=== PATIENT | male | born 1925 | race Caucasian/White ===

== ENCOUNTER 2016-03-22 14:39 | Inpatient (IN) | payer MEDICARE, OTHER ==
[2016-03-22] MEDS ORDERED: SODIUM CHLORIDE 0.9% 500 ML IV STA (15:41)
[2016-03-22] MEDS ORDERED: IBUPROFEN 600 MG TAB PO STA (15:41)
[2016-03-22] MEDS ORDERED: SODIUM CHLORIDE 0.9% 1,000 ML IV STA ×2 (15:41)
[2016-03-22] MEDS ORDERED: ACETAMINOPHEN TAB 500 MG TAB PO STA (15:41)
--- NOTE | 2016-03-22 15:48 | ED ---
General Adult HPI - General Chief complaint: Upper Respiratory Infection Stated complaint: Cough/Fever/Sweats Time Seen by Provider: 03/22/16 15:32 Source: patient, RN notes reviewed, old records reviewed Mode of arrival: ambulatory Limitations: no limitations - History of Present Illness Initial comments: This is an 89-year-old male the ER for evaluation. This patient presents for evaluation cough and congestion mild shortness of breath and fever. Patient does have significant medical history of heart disease, CHF, denies COPD. Denies abdominal pain. Mild anterior sternal chest pain. No nausea vomiting or diarrhea. No travel history no sick contacts. No recent hospitalizations - Related Data Home Medications Medication Instructions Recorded Confirmed Atenolol [Tenormin] 12.5 mg PO DAILY@0800 05/29/14 03/22/16 Budesonide/Formoterol Fumarate 2 puff INHALATION RT-BID 05/29/14 03/22/16 [Symbicort 80-4.5 Mcg Inhaler] Calcitriol 0.5 mcg PO MOWEFR 05/29/14 03/22/16 Cyanocobalamin [Vitamin B-12 2,000 mcg SQ QMONTH 05/29/14 03/22/16 Injection] Furosemide [Lasix] 20 mg PO MOWEFR 05/29/14 03/22/16 Mesalamine [Delzicol] 800 mg PO BID@0800,2100 05/29/14 03/22/16 Pravastatin Sodium [Pravachol] 40 mg PO HS@2100 05/29/14 03/22/16 Sertraline [Zoloft] 50 mg PO DAILY@0800 05/29/14 03/22/16 Magnesium Oxide [Mag-Ox] 400 mg PO DAILY@0800 10/15/14 03/22/16 Aspirin 81 mg PO DAILY 12/05/14 03/22/16 Fluticasone Nasal [place] [Flonase 1 spray EA NOSTRIL DAILY 12/05/14 03/22/16 Nasal [place]] Loratadine [Claritin] 10 mg PO DAILY 12/05/14 03/22/16 Cholecalciferol [Vitamin D3] 1,000 unit PO DAILY 03/22/16 03/22/16 Docusate [Colace] 100 mg PO BID PRN 03/22/16 03/22/16 HYDROcodone/APAP 5-325MG [[place] 5] 1 tab PO Q4HR PRN 03/22/16 03/22/16 Omeprazole [PriLOSEC] 20 mg PO BID@0800,1700 03/22/16 03/22/16 Previous Rx's Medication Instructions Recorded ALPRAZolam [Xanax] 0.5 mg PO BID PRN #20 tab 10/23/14 Ipratropium-Albuterol Nebulize 3 ml INHALATION RT-QID #1 ampul.neb 10/23/14 [Duoneb 0.5 mg-3 mg/3 ml Soln] Allergies Allergy/AdvReac Type Severity Reaction Status Date / Time Penicillins Allergy Unknown Rash/Hives Verified 03/22/16 15:12 Sulfa (Sulfonamide Allergy Unknown Rash/Hives Verified 03/22/16 15:12 Antibiotics) Review of Systems ROS Statement: Those systems with pertinent positive or pertinent negative responses have been documented in the HPI. ROS Other: All systems not noted in ROS Statement are negative. Past Medical History Past Medical History: Blood Disorder, Cancer, Heart Failure, GI Bleed, Renal Disease Additional Past Medical History / Comment(s): crohns, diverticulosis, anemia, prostate cancer, skin cancers -melanoma removed from chest, heart failure- dystolic dysfunction with EF 50% in May 2013, pneumonia and bronchitis, chronic respiratory failure, numbness bilateral feet, arthiritis bilateral hips and knees, DJD, gait dysfunction, CKD, nephrolitiasis, urinary calculus, back pain. Last Myocardial Infarction Date:: 1989 History of Any Multi-Drug Resistant Organisms: None Reported Past Surgical History: Bowel Resection, Coronary Bypass/CABG, Heart Catheterization Additional Past Surgical History / Comment(s): ileocolectomy, several endoscopic procedures upper and lower, lumbar back surgery, multiple lithotripsies, hemmorhoidectomy, R lung partial lobectomy, bilateral rotator cuff repair, R foot achilles tendon repair, L heel spur and benign tumor removal , cystoscopy, TURP, bilateral cataract removal, L eye macular pucker surgery, skin cancer removals, BMA with diagnosing Chrons, laryngoscopy, SNIFF test x 2, peridontal surgery. Past Anesthesia/Blood Transfusion Reactions: No Reported Reaction Additional Past Anesthesia/Blood Transfusion Reaction / Comment(s): Pt has recieved 11 units of blood without reaction. Past Psychological History: Anxiety, Depression Additional Psychological History / Comment(s): Pt lives alone. He is normally independent. He uses a cane to ambulate. He drives. He has no home care agency. He has 2 nieces who assist him. Smoking Status: Former smoker Past Alcohol Use History: Occasional Additional Past Alcohol Use History / Comment(s): Pt smoked for about 6 months while in the service in [employer]. Pt will have an occasional beer or tavo. Past Drug Use History: None Reported - Past Family History Father Family Medical History: COPD Additional Family Medical History / Comment(s): Father at age 81yrs. Mother Family Medical History: Cancer, Renal Disease Additional Family Medical History / Comment(s): Mother had alot of stomach problems, breast cancer and kidney disease. General Exam Limitations: no limitations General appearance: alert, in no apparent distress, anxious Head exam: Present: atraumatic, normocephalic, normal inspection Eye exam: Present: normal appearance, PERRL, EOMI. Absent: scleral icterus, conjunctival injection, periorbital swelling ENT exam: Present: normal exam, mucous membranes moist Neck exam: Present: normal inspection. Absent: tenderness, meningismus, lymphadenopathy Respiratory exam: Present: normal lung sounds bilaterally. Absent: respiratory distress, wheezes, rales, rhonchi, stridor Cardiovascular Exam: Present: regular rate, normal rhythm, normal heart sounds. Absent: systolic murmur, diastolic murmur, rubs, gallop, clicks GI/Abdominal exam: Present: soft, normal bowel sounds. Absent: distended, tenderness, guarding, rebound, rigid Extremities exam: Present: normal inspection, full ROM, normal capillary refill. Absent: tenderness, pedal edema, joint swelling, calf tenderness Back exam: Present: normal inspection Neurological exam: Present: alert, oriented X3, CN II-XII intact Psychiatric exam: Present: normal affect, normal mood Skin exam: Present: warm, dry, intact, normal color. Absent: rash Course Vital Signs 03/22/16 03/22/16 03/22/16 14:42 15:13 15:30 Temperature 99.6 F 101.3 F H 101.3 F H Pulse Rate 72 70 Respiratory 18 22 Rate Blood Pressure 138/58 140/55 O2 Sat by Pulse 94 L 99 Oximetry 03/22/16 03/22/16 03/22/16 15:35 15:55 16:47 Temperature 101.3 F H 101 F H Pulse Rate 70 62 Respiratory 22 18 16 Rate Blood Pressure 158/74 148/70 O2 Sat by Pulse 98 95 Oximetry - Reevaluation(s) Reevaluation #1: 03/22/16 17:15 Patient does admit to feeling better now with fever control, chills and shaking is gone EKG Findings - EKG Comments: EKG Findings:: EKG shows normal sinus rhythm rate of 72, MO 172, QRS 80, QTc 433 Medical Decision Making - Medical Decision Making 89 male here for evaluation of weakness, fever and chills. Patient comes to ER with no complaints of shortness of breath no chest pain no bowel pain no nausea vomiting or diarrhea. Patient does admit to feeling generally weak, decreased appetite. Patient's found be mildly dehydrated with mild acute renal insufficiency, patient also is positive for influenza, feeling better with fever and symptom control. Patient will be admitted for cardiopulmonary monitoring and other development of infection. We will not start antibiotics at this time secondary to viral illness - Lab Data Result diagrams: 03/22/16 15:26 03/22/16 15:26 Lab Results 03/22/16 03/22/16 03/22/16 Range/Units 15:26 15:26 15:26 WBC 3.0 L (3.8-10.6) k/uL RBC 4.26 L (4.30-5.90) m/uL Hgb 13.5 (13.0-17.5) gm/dL Hct 41.1 (39.0-53.0) % MCV 96.6 (80.0-100.0) fL MCH 31.7 (25.0-35.0) pg MCHC 32.9 (31.0-37.0) g/dL RDW 12.7 (11.5-15.5) % Plt Count 103 L (150-450) k/uL Neutrophils % 67 % Lymphocytes % 15 % Monocytes % 11 % Eosinophils % 2 % Basophils % 1 % Neutrophils # 2.0 (1.3-7.7) k/uL Lymphocytes # 0.4 L (1.0-4.8) k/uL Monocytes # 0.3 (0-1.0) k/uL Eosinophils # 0.1 (0-0.7) k/uL Basophils # 0.0 (0-0.2) k/uL PT (9.0-12.0) sec INR (<1.1) APTT (22.0-30.0) sec Sodium 138 (137-145) mmol/L Potassium 4.3 (3.5-5.1) mmol/L Chloride 101 (98-107) mmol/L Carbon Dioxide 28 (22-30) mmol/L Anion Gap 9 mmol/L BUN 21 H (9-20) mg/dL Creatinine 1.49 H (0.66-1.25) mg/dL Est GFR (MDRD) Af Amer 54 (>60 ml/min/1.73 sqM) Est GFR (MDRD) Non-Af 45 (>60 ml/min/1.73 sqM) Glucose 84 (74-99) mg/dL Plasma Lactic Acid Humberto (0.7-2.0) mmol/L Calcium 9.0 (8.4-10.2) mg/dL Phosphorus 2.7 (2.5-4.5) mg/dL Magnesium 1.6 (1.6-2.3) mg/dL Total Bilirubin 0.9 (0.2-1.3) mg/dL AST 29 (17-59) U/L ALT 31 (21-72) U/L Alkaline Phosphatase 57 (38-126) U/L Total Creatine Kinase 93 (55-170) U/L CK-MB (CK-2) 1.5 (0.0-2.4) ng/mL CK-MB (CK-2) Rel Index 1.6 Troponin I 0.013 (0.000-0.034) ng/mL Total Protein 6.2 L (6.3-8.2) g/dL Albumin 3.7 (3.5-5.0) g/dL Influenza Type A RNA (Not Detectd) Influenza Type B (PCR) (Not Detectd) 03/22/16 03/22/16 03/22/16 Range/Units 15:26 15:26 15:26 WBC (3.8-10.6) k/uL RBC (4.30-5.90) m/uL Hgb (13.0-17.5) gm/dL Hct (39.0-53.0) % MCV (80.0-100.0) fL MCH (25.0-35.0) pg MCHC (31.0-37.0) g/dL RDW (11.5-15.5) % Plt Count (150-450) k/uL Neutrophils % % Lymphocytes % % Monocytes % % Eosinophils % % Basophils % % Neutrophils # (1.3-7.7) k/uL Lymphocytes # (1.0-4.8) k/uL Monocytes # (0-1.0) k/uL Eosinophils # (0-0.7) k/uL Basophils # (0-0.2) k/uL PT 10.3 (9.0-12.0) sec INR 1.0 (<1.1) APTT 24.1 (22.0-30.0) sec Sodium (137-145) mmol/L Potassium (3.5-5.1) mmol/L Chloride (98-107) mmol/L Carbon Dioxide (22-30) mmol/L Anion Gap mmol/L BUN (9-20) mg/dL Creatinine (0.66-1.25) mg/dL Est GFR (MDRD) Af Amer (>60 ml/min/1.73 sqM) Est GFR (MDRD) Non-Af (>60 ml/min/1.73 sqM) Glucose (74-99) mg/dL Plasma Lactic Acid Humberto 1.0 (0.7-2.0) mmol/L Calcium (8.4-10.2) mg/dL Phosphorus (2.5-4.5) mg/dL Magnesium (1.6-2.3) mg/dL Total Bilirubin (0.2-1.3) mg/dL AST (17-59) U/L ALT (21-72) U/L Alkaline Phosphatase (38-126) U/L Total Creatine Kinase (55-170) U/L CK-MB (CK-2) (0.0-2.4) ng/mL CK-MB (CK-2) Rel Index Troponin I (0.000-0.034) ng/mL Total Protein (6.3-8.2) g/dL Albumin (3.5-5.0) g/dL Influenza Type A RNA Detected A (Not Detectd) Influenza Type B (PCR) Not Detected (Not Detectd) - Radiology Data Radiology results: report reviewed (Chest x-ray two-view is negative for acute disease), image reviewed Disposition Clinical Impression: Influenza, SIRS (systemic inflammatory response syndrome), ARF (acute renal failure), Weakness Disposition: ADMITTED IP TO THIS HOSP Condition: Fair
[2016-03-22 15:56] LABS: Basophils % (A) 1 %; CH 32.5; CHCM 33.8; Eosinophils # (A) 0.1 k/uL (0-0.7); Eosinophils % (A) 2 %; HCT 41.1 % (39.0-53.0); HDW 2.29; HGB 13.5 gm/dL (13.0-17.5); Luc # (Auto) 0.12; Luc % (Auto) 4; Lymphocytes # (A) 0.4 k/uL (1.0-4.8); Lymphocytes % (A) 15 %; MCH 31.7 pg (25.0-35.0); MCHC 32.9 g/dL (31.0-37.0); MCV 96.6 fL (80.0-100.0); Monocytes # (A) 0.3 k/uL (0-1.0); Monocytes % (A) 11 %; Neutrophils % (A) 67 %; RBC 4.26 m/uL (4.30-5.90); RDW 12.7 % (11.5-15.5); WBC (Perox) 2.98
[2016-03-22 16:04] LABS: Partial Thromboplastin Time 24.1 sec (22.0-30.0); Prothrombin Time 10.3 sec (9.0-12.0)
[2016-03-22 16:06] LABS: Magnesium 1.6 mg/dL (1.6-2.3); Phosphorous 2.7 mg/dL (2.5-4.5); Potassium 4.3 mmol/L (3.5-5.1); Total Bilirubin 0.9 mg/dL (0.2-1.3); Total Protein 6.2 g/dL (6.3-8.2)
--- NOTE | 2016-03-22 16:18 | XR ---
EXAMINATION TYPE: XR chest 2V DATE OF EXAM: 03/22/2016 4:08 PM COMPARISON: 10/21/2014 HISTORY: 82-year-old male with weakness, cough, shortness of breath TECHNIQUE: AP and lateral views FINDINGS: Median sternotomy wires are present with post-CABG clips. Similar elevation of the right hemidiaphrag m with patchy right basilar opacity probably atelectasis. There appears to be large appearance to the main right and left pulmonary arteries on the lateral view. No pleural effusion. IMPRESSION: Chronic changes with chronic volume loss at the right base with pulmonary arterial hypertension. No d efinite acute change.
[2016-03-22 16:32] LABS: Creatine Kinase MB 1.5 ng/mL (0.0-2.4); Troponin I 0.013 ng/mL (0.000-0.034)
[2016-03-22] MEDS ORDERED: OSELTAMIVIR 75 MG CAP PO STA (16:39)
[2016-03-22] MEDS ORDERED: SODIUM CHLORIDE 0.9% 1,000 ML IV ONE (17:16)
[2016-03-22] MEDS ORDERED: ACETAMINOPHEN TAB 325 MG TAB PO PRN (17:16)
[2016-03-22] MEDS ORDERED: IBUPROFEN 600 MG TAB PO PRN (17:16)
[2016-03-22] MEDS ORDERED: MORPHINE SULFATE 4 MG/ML SYRINGE IV PRN (17:18)
[2016-03-22] MEDS ORDERED: ASPIRIN 81 MG CHEW PO STA (17:18)
[2016-03-22] MEDS ORDERED: PRAVASTATIN SODIUM 40 MG TAB PO SCH (21:00)
[2016-03-22 21:27] LABS: Appearance,Urine Clear (Clear); Bacteria,Urine Rare /hpf; Bilirubin,Urine Negative (Negative); Glucose,Urine (UA) Negative (Negative); Ketones,Urine Negative (Negative); Leukocyte Esterase,Urine Small (Negative); Mucus,Urine Rare /hpf; Nitrite,Urine Negative (Negative); PH, Urine 5.5 (5.0-8.0); Particle Count 1074; Protein,Urine Negative (Negative); RBC,Urine 22 /hpf (0-5); Specific Gravity,Urine 1.009 (1.001-1.035); Squamous Epithelial Cell,Urine 1 /hpf (0-4); UA Billing (MACRO vs. MICRO) MICRO; Urobilinogen,Urine <2.0 mg/dL (<2.0); WBC,Urine 14 /hpf (0-5)
[2016-03-22] MEDS: BALSALAZIDE DISODIUM 750 MG CAPSULE PO SCH (21:45)
[2016-03-22 23:20] LABS: Creatine Kinase MB 1.6 ng/mL (0.0-2.4); Troponin I 0.012 ng/mL (0.000-0.034)
[2016-03-23 03:38] LABS: Creatine Kinase 104 U/L (55-170)
[2016-03-23 03:47] LABS: Cholesterol 125 mg/dL (<200); HDL Cholesterol 59 mg/dL (40-60); Triglycerides 79 mg/dL (<150)
[2016-03-23 03:51] LABS: Creatine Kinase MB 1.9 ng/mL (0.0-2.4); Troponin I <0.012 ng/mL (0.000-0.034)
[2016-03-23] MEDS ORDERED: MAGNESIUM OXIDE 400 MG TAB PO SCH (08:00)
[2016-03-23] MEDS ORDERED: ATENOLOL 12.5 MG TAB PO SCH (08:00)
[2016-03-23] MEDS ORDERED: SYMBICORT 80-4.5 MCG INHALER INHALATION SCH (08:00)
[2016-03-23] MEDS: BALSALAZIDE DISODIUM 750 MG CAPSULE PO SCH (08:09)
[2016-03-23 08:24] VITALS: RESP 16
[2016-03-23] MEDS ORDERED: CHOLECALCIFEROL 1,000 UNIT TAB PO SCH (09:00)
[2016-03-23] MEDS ORDERED: CALCITRIOL 0.25 MCG CAP PO SCH (09:00)
[2016-03-23] MEDS ORDERED: ENOXAPARIN 40 MG/0.4 ML SYRINGE SQ SCH (09:00)
[2016-03-23] MEDS ORDERED: ASPIRIN 325 MG TAB PO SCH (09:00)
[2016-03-23] MEDS ORDERED: OSELTAMIVIR 75 MG CAP PO SCH (09:00)
[2016-03-23 11:30] VITALS: BP 116/61; PULSE 68; TEMP 99.5
--- NOTE | 2016-03-23 13:05 | P.CNPUL ---
History of Present Illness Consult date: 03/23/16 Requesting physician: Chris Edouard Reason for consult: COPD, other (Acute viral illness) Chief complaint: Cough fever and sweats. History of present illness: This is an 89-year-old white male with history of mild to moderate COPD, usually sees Dr. Guy for his COPD. Patient is not O2 dependent and not prednisone dependent. Came into the ER with a few days' history of cough, congestion, shortness of breath, fever, generalized aches and pains. Chest x- ray showed no evidence of active disease. Patient was noted to have slight leukopenia, otherwise the rest of the labs were unremarkable. Influenza screening was positive for influenza type A. Hence the patient was admitted, and this consult was initiated. Patient is already feeling better, breathing a lot easier, feels much improved compared to how he felt over the last few days. Patient is now on Tamiflu. And he is on secretions/droplets precautions. Review of Systems 14 point review of systems were obtained, please refer to pertinent positives and negatives in HPI Past Medical History Past Medical History: Blood Disorder, Cancer, Heart Failure, GI Bleed, Renal Disease Additional Past Medical History / Comment(s): crohns, diverticulosis, anemia, prostate cancer, skin cancers -melanoma removed from chest, heart failure- dystolic dysfunction with EF 50% in May 2013, pneumonia and bronchitis, chronic respiratory failure, numbness bilateral feet, arthiritis bilateral hips and knees, DJD, gait dysfunction, CKD, nephrolitiasis, urinary calculus, back pain. Last Myocardial Infarction Date:: 1989 History of Any Multi-Drug Resistant Organisms: None Reported Past Surgical History: Bowel Resection, Coronary Bypass/CABG, Heart Catheterization Additional Past Surgical History / Comment(s): ileocolectomy, several endoscopic procedures upper and lower, lumbar back surgery, multiple lithotripsies, hemmorhoidectomy, R lung partial lobectomy, bilateral rotator cuff repair, R foot achilles tendon repair, L heel spur and benign tumor removal , cystoscopy, TURP, bilateral cataract removal, L eye macular pucker surgery, skin cancer removals, BMA with diagnosing Chrons, laryngoscopy, SNIFF test x 2, peridontal surgery. Past Anesthesia/Blood Transfusion Reactions: No Reported Reaction Additional Past Anesthesia/Blood Transfusion Reaction / Comment(s): Pt has recieved 11 units of blood without reaction. Past Psychological History: Anxiety, Depression Additional Psychological History / Comment(s): Pt lives alone. He is normally independent. He uses a cane to ambulate. He drives. He has no home care agency. He has 2 nieces who assist him. Smoking Status: Former smoker Past Alcohol Use History: Occasional Additional Past Alcohol Use History / Comment(s): Pt smoked for about 6 months while in the service in [employer]. Pt will have an occasional beer or tavo. Past Drug Use History: None Reported - Past Family History Father Family Medical History: COPD Additional Family Medical History / Comment(s): Father at age 81yrs. Mother Family Medical History: Cancer, Renal Disease Additional Family Medical History / Comment(s): Mother had alot of stomach problems, breast cancer and kidney disease. Medications and Allergies Home Medications Medication Instructions Recorded Confirmed Type Atenolol [Tenormin] 12.5 mg PO DAILY@0800 05/29/14 03/22/16 History Budesonide/Formoterol Fumarate 2 puff INHALATION RT-BID 05/29/14 03/22/16 History [Symbicort 80-4.5 Mcg Inhaler] Calcitriol 0.5 mcg PO MOWEFR 05/29/14 03/22/16 History Cyanocobalamin [Vitamin B-12 2,000 mcg SQ QMONTH 05/29/14 03/22/16 History Injection] Furosemide [Lasix] 20 mg PO MOWEFR 05/29/14 03/22/16 History Mesalamine [Delzicol] 800 mg PO BID@0800,2100 05/29/14 03/22/16 History Pravastatin Sodium [Pravachol] 40 mg PO HS@2100 05/29/14 03/22/16 History Sertraline [Zoloft] 50 mg PO DAILY@0800 05/29/14 03/22/16 History Magnesium Oxide [Mag-Ox] 400 mg PO DAILY@0800 10/15/14 03/22/16 History Aspirin 81 mg PO DAILY 12/05/14 03/22/16 History Fluticasone Nasal [place] [Flonase 1 spray EA NOSTRIL DAILY 12/05/14 03/22/16 History Nasal [place]] Loratadine [Claritin] 10 mg PO DAILY 12/05/14 03/22/16 History Cholecalciferol [Vitamin D3] 1,000 unit PO DAILY 03/22/16 03/22/16 History Docusate [Colace] 100 mg PO BID PRN 03/22/16 03/22/16 History HYDROcodone/APAP 5-325MG [[place] 5] 1 tab PO Q4HR PRN 03/22/16 03/22/16 History Omeprazole [PriLOSEC] 20 mg PO BID@0800,1700 03/22/16 03/22/16 History Allergies Allergy/AdvReac Type Severity Reaction Status Date / Time Penicillins Allergy Unknown Rash/Hives Verified 03/22/16 15:12 Sulfa (Sulfonamide Allergy Unknown Rash/Hives Verified 03/22/16 15:12 Antibiotics) Physical Exam Vitals: Vital Signs Temp Pulse Pulse Resp BP BP Pulse Ox 03/23/16 11:29 99.5 F 68 16 116/61 97 03/23/16 08:00 100.4 F H 81 16 139/70 97 03/23/16 04:00 98.3 F 76 18 142/78 94 L 03/23/16 00:00 98.6 F 70 18 149/92 93 L 03/22/16 20:00 97.6 F 61 18 125/64 95 03/22/16 18:46 100 20 141/74 96 03/22/16 18:12 98.1 F 87 18 142/87 98 Intake and Output 03/22/16 03/23/16 03/23/16 22:59 06:59 14:59 Intake Total 118 Output Total 350 200 Balance -350 -82 Intake: Oral 118 Output: Urine 350 200 Other: Weight 90 kg Physical Exam: Revealed an 89-year-old in no distress HEENT:[Neck is supple.] [No neck masses.] [No thyromegaly.] [No JVD.] Chest: [Diminished breath sounds, no rhonchi, no wheezes.] Cardiac Exam: [Normal S1 and S2, no S3 gallop, no murmur.] Abdomen: [Soft, nontender, no megaly, no rebound, no guarding, normal bowel sounds.] Extremities: [No clubbing, no edema, no cyanosis.] Neurological Exam: [No focal neurologic deficit.] Results - Laboratory Findings CBC and BMP: 03/22/16 15:26 03/22/16 15:26 PT/INR, D-dimer PT 10.3 sec (9.0-12.0) 03/22/16 15:26 INR 1.0 (<1.1) 03/22/16 15:26 Abnormal lab findings: Abnormal Labs 03/22/16 21:07 Urine Blood Small H Ur Leukocyte Esterase Small H Urine RBC 22 H Urine WBC 14 H Urine Bacteria Rare H Urine Mucus Rare H - Diagnostic Findings Chest x-ray: image reviewed (Chronic changes and volume loss of the right base, otherwise relatively unremarkable chest x-ray.) Assessment and Plan Plan: Impression: 1 acute URI secondary to influenza A. 2 multiple comorbidities including COPD which is relatively stable at this point , ALLERGIC rhinitis, and GERD. As well as history of hypercholesterolemia. History of coronary artery disease and previous PA, and previous history of congestive heart failure. History of melanoma removed from the chest. History of diastolic congestive heart failure history of chronic back pain and history of nephrolithiasis. History of duodenal ulcer requiring injection with epinephrine 4 to control the bleeding. History of hereditary hemorrhagic telangiectasia history of prostate cancer history of Crohn's and previous ileocolectomy. Recommendation: Agree with the present treatment plan, I strongly feel the patient could be discharged home in the next 24 hours. And follow-up on outpatient basis. Time with Patient: Greater than 30
--- NOTE | 2016-03-23 15:50 | HP ---
DATE OF ADMISSION: 03/22/2016 H&P AND DISCHARGE SUMMARY Patient is an 89-year-old admitted, came in with flulike symptoms started about 2 days ago. Patient influenza A is negative. Patient does not have any pneumonic process. Patient does have history of chronic obstructive pulmonary disease without any acute exacerbation. Patient does have history of congestive heart failure as well. I do not know the ejection fraction at this point of time. Is not in acute exacerbation of congestive heart failure either. Patient is being discharged today. The patient received one day of Tamiflu. Patient will be discharged on 4 more days of Tamiflu. Patient denied any fevers today. Patient is feeling much better. Myalgias improved today. The patient had fever yesterday of 101.3. Patient was complaining of cough, mostly dry cough. Patient's ejection fraction of 60 to 65% and patient had mild acute renal failure, which the patient received IV fluids overnight. Patient is feeling much better. Patient will be discharged today. REVIEW OF SYSTEMS: CONSTITUTIONAL: as described in HPI which is myalgias and fever. HEENT: No recent visual problems or hearing problems. Denied any sore throat. CARDIOVASCULAR: No chest pain, orthopnea, PND, no palpitations, no syncope. PULMONARY: No shortness of breath, no cough, no hemoptysis. GASTROINTESTINAL: No diarrhea, no nausea, no vomiting, no abdominal pain. Normoactive bowel sounds. NEUROLOGICAL: No headaches, no weakness, no numbness. HEMATOLOGICAL: Denies any bleeding or petechiae. GENITOURINARY: Denies any burning micturition, frequency, or urgency. MUSCULOSKELETAL/RHEUMATOLOGICAL: Denies any joint pain, swelling, or any muscle pain. ENDOCRINE: Denies any polyuria or polydipsia. The rest of the 14 point review of systems is negative. PAST MEDICAL HISTORY: Significant for COPD. Patient has normal ejection fraction. Patient may have diastolic dysfunction and heart failure and the patient has chronic kidney disease stage II, GI bleeds in the past, cancer, bowel resection, coronary artery bypass grafting, cardiac catheterization in the past, Crohn's disease, laryngoscopy in the past. Anxiety, depression. SOCIAL HISTORY: Former smoker. Quit smoking about 6 months ago. Denied any alcohol abuse or any drug abuse. FAMILY HISTORY: Father had COPD, father at age 81, mother had cancer and renal disease. She had breast cancer. Home medications include: 1. Atenolol. 2. Budesonide. 3. Formoterol. 4. ( ). 5. Cyanocobalamin. 6. Lasix. 7. Mesalamine. 8. Pravastatin. 9. Sertraline. 10. Magnesium oxide. 11. Aspirin. 12. Fluticasone. 13. Loratadine. 14. Cholecalciferol. 15. Docusate. 16. Hydrocodone/acetaminophen. 17. Omeprazole. ALLERGIES: ALLERGIC TO PENICILLIN, SULFA DRUGS. PHYSICAL EXAMINATION: Temperature 99.5, 24-hour T-max is 101.3, pulse 87, respiratory rate of 16, blood pressure is 116/61, saturating at 97% on 4 liters of O2 by nasal cannula but we can cut it down to 2 liters at this time. GENERAL: The patient is alert and oriented x3, not in any acute distress. Well developed, well nourished. HEENT: Pupils are round and equally reacting to light. EOMI. No scleral icterus. No conjunctival pallor. Normocephalic, atraumatic. No pharyngeal erythema. No thyromegaly. CARDIOVASCULAR: S1 and S2 present. No murmurs, rubs, or gallops. PULMONARY: Patient has bilateral rhonchorous breath sounds. No wheezing was appreciated. Fairly good air entry into bilateral lung fernandez. ABDOMEN: Soft, nontender, nondistended, normoactive bowel sounds. No palpable organomegaly. MUSCULOSKELETAL: No joint swelling or deformity. EXTREMITIES: No cyanosis, clubbing, or pedal edema. NEUROLOGICAL: Gross neurological examination did not reveal any focal deficits. SKIN: No rashes. LABORATORY DATA: CBC, CMP are abnormal for mildly elevated creatinine of 1.49, baseline is 1.2. ASSESSMENT AND PLAN: 1. Acute upper respiratory infection and systemic inflammatory response syndrome and sepsis secondary to Influenza A, and patient will be discharged on Tamiflu. 2. Chronic obstructive pulmonary disease without any acute exacerbation. 3. Chronic diastolic dysfunction without any acute exacerbation. 4. Acute renal failure due to intravascular volume depletion. Received IV fluids and patient will be discharged to home and will be asked not to take Lasix until he sees his primary care physician. Patient is on alternate days 20 mg Lasix. 5. Hypertension. 6. Obesity. Counseling was provided. 7. 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 8. Chronic obstructive pulmonary disease without any acute exacerbation. PLAN: As mentioned above patient will be discharged. The patient will be followed by Dr. Khoa Alford March 30 at 3:00 p.m. This dictation is both H&P and discharge summary. Activity as tolerated. Cardiac diet.
== END 2016-03-23 15:12 | disposition home or self-care (01) | DRG 872 ==
LOC: EC 14:39 → 6SEL 17:16
PROVIDERS: ADMIT Hospitalist; ATTEND Hospitalist
DX: A41.89 Other specified sepsis (principal); N17.9 Acute kidney failure, unspecified; J96.10 Chronic respiratory failure, unspecified whether with hypoxia or hypercapnia; I50.32 Chronic diastolic (congestive) heart failure; I13.0 Hypertensive heart and chronic kidney disease with heart failure and stage 1 through stage 4 chronic kidney disease, or unspecified chronic kidney disease; K50.90 Crohn's disease, unspecified, without complications; E86.0 Dehydration; J44.9 Chronic obstructive pulmonary disease, unspecified; J11.1 Influenza due to unidentified influenza virus with other respiratory manifestations; N18.2 Chronic kidney disease, stage 2 (mild); K57.90 Diverticulosis of intestine, part unspecified, without perforation or abscess without bleeding; M19.072 Primary osteoarthritis, left ankle and foot; M19.071 Primary osteoarthritis, right ankle and foot; M16.0 Bilateral primary osteoarthritis of hip; F41.9 Anxiety disorder, unspecified; F32.9 Major depressive disorder, single episode, unspecified; J30.9 Allergic rhinitis, unspecified; E78.00 Pure hypercholesterolemia, unspecified; I25.10 Atherosclerotic heart disease of native coronary artery without angina pectoris; M17.0 Bilateral primary osteoarthritis of knee; I25.2 Old myocardial infarction; K21.9 Gastro-esophageal reflux disease without esophagitis; G89.29 Other chronic pain; M54.9 Dorsalgia, unspecified; R26.9 Unspecified abnormalities of gait and mobility; Z87.442 Personal history of urinary calculi; Z87.891 Personal history of nicotine dependence; Z85.46 Personal history of malignant neoplasm of prostate; Z85.820 Personal history of malignant melanoma of skin; Z87.11 Personal history of peptic ulcer disease; Z95.1 Presence of aortocoronary bypass graft; Z98.42 Cataract extraction status, left eye; Z98.41 Cataract extraction status, right eye; Z82.5 Family history of asthma and other chronic lower respiratory diseases; Z79.82 Long term (current) use of aspirin; Z79.51 Long term (current) use of inhaled steroids; Z79.899 Other long term (current) drug therapy
CPT/HCPCS: 36415; 71020; 80053; 80061; 81001; 82550; 82553; 83605; 83735; 84100; 84484; 85025; 85610; 85730; 87040; 87086; 87502; 93005; 94640; 96360; 96361; 99284

== ENCOUNTER 2016-06-17 13:36 | Inpatient (IN) | payer MEDICARE, OTHER ==
[2016-06-17] MEDS ORDERED: SODIUM CHLORIDE 0.9% 1,000 ML IV ONE (13:40)
[2016-06-17] MEDS ORDERED: ACETAMINOPHEN TAB 325 MG TAB PO STA (13:40)
[2016-06-17] MEDS ORDERED: ONDANSETRON 4 MG/2 ML VIAL IVP STA (13:56)
[2016-06-17 14:15] LABS: Calcium 9.4 mg/dL (8.4-10.2); Potassium 5.1 mmol/L (3.5-5.1); Total Bilirubin 3.3 mg/dL (0.2-1.3); Total Protein 7.1 g/dL (6.3-8.2)
[2016-06-17 14:18] LABS: Basophils # (A) 0.1 k/uL (0-0.2); Basophils % (A) 2 %; CHCM 33.2; Eosinophils # (A) 0.1 k/uL (0-0.7); Eosinophils % (A) 1 %; HCT 43.2 % (39.0-53.0); HDW 2.35; HGB 14.2 gm/dL (13.0-17.5); Luc # (Auto) 0.03; Luc % (Auto) 0; Lymphocytes # (A) 0.3 k/uL (1.0-4.8); Lymphocytes % (A) 4 %; MCH 32.9 pg (25.0-35.0); MCHC 32.9 g/dL (31.0-37.0); MCV 99.9 fL (80.0-100.0); Mean Platelet Volume 6.8; Monocytes # (A) 0.1 k/uL (0-1.0); Monocytes % (A) 2 %; Neutrophils # (A) 6.9 k/uL (1.3-7.7); Neutrophils % (A) 92 %; RBC 4.32 m/uL (4.30-5.90); RDW 13.1 % (11.5-15.5); WBC 7.5 k/uL (3.8-10.6); WBC (Perox) 7.72
[2016-06-17] MEDS ORDERED: RX INFO: IV CONTRAST WAS GIVEN 1 EACH MISC MISCELLANE PRN (14:28)
--- NOTE | 2016-06-17 14:33 | ED ---
General Adult HPI - General Chief complaint: Abdominal Pain Stated complaint: abd pain Source: patient, EMS Mode of arrival: EMS Limitations: no limitations - History of Present Illness Initial comments: 89-year-old male with a past medical history of constipation and bowel obstruction presented for evaluation of right upper quadrant abdominal pain that woke him from sleep at 8 AM this morning. He states that for the past few days he has been having constipation and he took some milk of magnesia which allowed him have a bowel movement yesterday. Since then he has been passing flatus frequently throughout yesterday and today the pain began. He states that he has had symptoms like this before and that was when he had his bowel traction. He has had a cholecystectomy. Nothing makes his pain better and nothing makes his pain worse. He states that this time he is asymptomatic. There was associated nausea and in route EMS had him with a very hypertensive blood pressure although upon arrival this had resolved. - Related Data Home Medications Medication Instructions Recorded Confirmed Atenolol [Tenormin] 12.5 mg PO DAILY@0800 05/29/14 06/17/16 Budesonide/Formoterol Fumarate 2 puff INHALATION RT-BID 05/29/14 06/17/16 [Symbicort 80-4.5 Mcg Inhaler] Cyanocobalamin [Vitamin B-12 1,000 mcg SQ QMONTH 05/29/14 06/17/16 Injection] Furosemide [Lasix] 20 mg PO MOWEFR 05/29/14 06/17/16 Mesalamine [Delzicol] 800 mg PO BID@0800,2100 05/29/14 06/17/16 Pravastatin Sodium [Pravachol] 40 mg PO HS@2100 05/29/14 06/17/16 Magnesium Oxide [Mag-Ox] 400 mg PO DAILY@0800 10/15/14 06/17/16 Aspirin 81 mg PO DAILY 12/05/14 06/17/16 Fluticasone Nasal [place] [Flonase 1 spray EA NOSTRIL DAILY 12/05/14 06/17/16 Nasal [place]] Loratadine [Claritin] 10 mg PO DAILY 12/05/14 06/17/16 Cholecalciferol [Vitamin D3] 1,000 unit PO DAILY 03/22/16 06/17/16 Docusate [Colace] 100 mg PO BID PRN 03/22/16 06/17/16 HYDROcodone/APAP 5-325MG [[place] 5] 1 tab PO Q4HR PRN 03/22/16 06/17/16 Omeprazole [PriLOSEC] 20 mg PO BID@0800,1700 03/22/16 06/17/16 Previous Rx's Medication Instructions Recorded ALPRAZolam [Xanax] 0.5 mg PO BID PRN #20 tab 10/23/14 Ipratropium-Albuterol Nebulize 3 ml INHALATION RT-QID #1 ampul.neb 10/23/14 [Duoneb 0.5 mg-3 mg/3 ml Soln] Allergies Allergy/AdvReac Type Severity Reaction Status Date / Time Penicillins Allergy Unknown Rash/Hives Verified 06/17/16 14:36 Sulfa (Sulfonamide Allergy Unknown Rash/Hives Verified 06/17/16 14:36 Antibiotics) Review of Systems ROS Statement: Those systems with pertinent positive or pertinent negative responses have been documented in the HPI. ROS Other: All systems not noted in ROS Statement are negative. Constitutional: Denies: fever, chills Eyes: Denies: eye pain, eye discharge ENT: Denies: ear pain, throat pain Respiratory: Reports: dyspnea (History of COPD and states it is at its baseline) . Denies: cough Cardiovascular: Reports: dyspnea on exertion. Denies: chest pain, palpitations , orthopnea, edema Endocrine: Denies: fatigue, polydipsia Gastrointestinal: Reports: abdominal pain, nausea, constipation. Denies: vomiting, diarrhea, hematemesis, melena, hematochezia Genitourinary: Denies: urgency, dysuria Musculoskeletal: Denies: joint swelling, arthralgia Skin: Denies: rash, lesions Neurological: Denies: headache, weakness Psychiatric: Denies: anxiety, depression Hematological/Lymphatic: Denies: easy bleeding, easy bruising Past Medical History Past Medical History: Blood Disorder, Cancer, Heart Failure, GI Bleed, Renal Disease Additional Past Medical History / Comment(s): crohns, diverticulosis, anemia, prostate cancer, skin cancers -melanoma removed from chest, heart failure- dystolic dysfunction with EF 50% in May 2013, pneumonia and bronchitis, chronic respiratory failure, numbness bilateral feet, arthiritis bilateral hips and knees, DJD, gait dysfunction, CKD, nephrolitiasis, urinary calculus, back pain. Last Myocardial Infarction Date:: 1989 History of Any Multi-Drug Resistant Organisms: None Reported Past Surgical History: Bowel Resection, Coronary Bypass/CABG, Heart Catheterization Additional Past Surgical History / Comment(s): ileocolectomy, several endoscopic procedures upper and lower, lumbar back surgery, multiple lithotripsies, hemmorhoidectomy, R lung partial lobectomy, bilateral rotator cuff repair, R foot achilles tendon repair, L heel spur and benign tumor removal , cystoscopy, TURP, bilateral cataract removal, L eye macular pucker surgery, skin cancer removals, BMA with diagnosing Chrons, laryngoscopy, SNIFF test x 2, peridontal surgery. Past Anesthesia/Blood Transfusion Reactions: No Reported Reaction Additional Past Anesthesia/Blood Transfusion Reaction / Comment(s): Pt has recieved 11 units of blood without reaction. Past Psychological History: Anxiety, Depression Additional Psychological History / Comment(s): Pt lives alone. He is normally independent. He uses a cane to ambulate. He drives. He has no home care agency. He has 2 nieces who assist him. 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 Pt will have an occasional beer or tavo. Past Drug Use History: None Reported - Past Family History Father Family Medical History: COPD Additional Family Medical History / Comment(s): Father at age 81yrs. Mother Family Medical History: Cancer, Renal Disease Additional Family Medical History / Comment(s): Mother had alot of stomach problems, breast cancer and kidney disease. General Exam Limitations: no limitations General appearance: alert, in no apparent distress Head exam: Present: atraumatic, normocephalic, normal inspection Eye exam: Present: normal appearance, PERRL, EOMI. Absent: scleral icterus, conjunctival injection, periorbital swelling ENT exam: Present: normal exam, mucous membranes moist Neck exam: Present: normal inspection. Absent: tenderness, meningismus, lymphadenopathy Respiratory exam: Present: normal lung sounds bilaterally. Absent: respiratory distress, wheezes, rales, rhonchi, stridor Cardiovascular Exam: Present: regular rate, normal rhythm, normal heart sounds. Absent: systolic murmur, diastolic murmur, rubs, gallop, clicks GI/Abdominal exam: Present: soft, normal bowel sounds. Absent: distended, tenderness, guarding, rebound, rigid Rectal exam: Present: deferred Extremities exam: Present: normal inspection, full ROM, normal capillary refill. Absent: tenderness, pedal edema, joint swelling, calf tenderness Back exam: Present: normal inspection Neurological exam: Present: alert, oriented X3, CN II-XII intact Psychiatric exam: Present: normal affect, normal mood Skin exam: Present: warm, dry, intact, normal color. Absent: rash Course Vital Signs 06/17/16 06/17/16 06/17/16 13:48 14:42 16:09 Temperature 101.9 F H 101.1 F H 98.7 F Pulse Rate 92 91 93 Respiratory 22 18 18 Rate Blood Pressure 154/90 151/67 115/57 O2 Sat by Pulse 93 L 94 L 97 Oximetry EKG Findings - EKG Comments: EKG Findings:: Normal sinus rhythm with a right bundle branch block and a ventricular rate of 91, MARCO A 188, QRS 128, QT/QTC 368/452 Medical Decision Making - Medical Decision Making 89-year-old male with past medical history of constipation and bowel obstruction presented for evaluation of right upper quadrant abdominal pain that woke him from sleep at 8 AM today. He states prior to arrival to the ED the pain had resolved. On physical examination he has a soft abdomen without peritoneal signs of guarding, rigidity, or rebound. Abdomen is not distended. No fluid waves are appreciated. Although abdominal exam is benign he states this previous presentation was due to a bowel obstruction which is similar to today's. Given that we'll obtain labs, EKG, CT abdomen with IV contrast, and provide IV fluid, Tylenol for fever, and Zofran for nausea. Labs significant for pancreatitis as well as transaminitis. The patient was informed of this and on reevaluation he was starting to have some increasing epigastric abdominal pain. He was informed that he would require admission for further treatment and evaluation to which she agreed. Dr. Coronel was updated on the status of the patient and accepted admission without further request. Admission order placed and bed request submitted. Pt made NPO and given pain control for the night. - Lab Data Result diagrams: 06/17/16 13:47 06/17/16 13:47 Lab Results 06/17/16 06/17/1617 Range/Units 13:47 13:47 13:47 WBC 7.5 (3.8-10.6) k/uL RBC 4.32 (4.30-5.90) m/uL Hgb 14.2 (13.0-17.5) gm/dL Hct 43.2 (39.0-53.0) % MCV 99.9 (80.0-100.0) fL MCH 32.9 (25.0-35.0) pg MCHC 32.9 (31.0-37.0) g/dL RDW 13.1 (11.5-15.5) % Plt Count 125 L (150-450) k/uL Neutrophils % 92 % Lymphocytes % 4 % Monocytes % 2 % Eosinophils % 1 % Basophils % 2 % Neutrophils # 6.9 (1.3-7.7) k/uL Lymphocytes # 0.3 L (1.0-4.8) k/uL Monocytes # 0.1 (0-1.0) k/uL Eosinophils # 0.1 (0-0.7) k/uL Basophils # 0.1 (0-0.2) k/uL Sodium 139 (137-145) mmol/L Potassium 5.1 (3.5-5.1) mmol/L Chloride 101 (98-107) mmol/L Carbon Dioxide 30 (22-30) mmol/L Anion Gap 8 mmol/L BUN 27 H (9-20) mg/dL Creatinine 1.44 H (0.66-1.25) mg/dL Est GFR (MDRD) Af Amer 56 (>60 ml/min/1.73 sqM) Est GFR (MDRD) Non-Af 46 (>60 ml/min/1.73 sqM) Glucose 94 (74-99) mg/dL Plasma Lactic Acid Humberto 1.0 (0.7-2.0) mmol/L Calcium 9.4 (8.4-10.2) mg/dL Total Bilirubin 3.3 H (0.2-1.3) mg/dL AST 579 H (17-59) U/L ALT 250 H (21-72) U/L Alkaline Phosphatase 141 H (38-126) U/L Troponin I (0.000-0.034) ng/mL NT-Pro-B Natriuret Pep pg/mL Total Protein 7.1 (6.3-8.2) g/dL Albumin 4.2 (3.5-5.0) g/dL Lipase 9713 H (23-300) U/L Influenza Type A RNA (Not Detectd) Influenza Type B (PCR) (Not Detectd) 06/17/16 06/17/16 06/17/16 Range/Units 13:47 13:47 13:50 WBC (3.8-10.6) k/uL RBC (4.30-5.90) m/uL Hgb (13.0-17.5) gm/dL Hct (39.0-53.0) % MCV (80.0-100.0) fL MCH (25.0-35.0) pg MCHC (31.0-37.0) g/dL RDW (11.5-15.5) % Plt Count (150-450) k/uL Neutrophils % % Lymphocytes % % Monocytes % % Eosinophils % % Basophils % % Neutrophils # (1.3-7.7) k/uL Lymphocytes # (1.0-4.8) k/uL Monocytes # (0-1.0) k/uL Eosinophils # (0-0.7) k/uL Basophils # (0-0.2) k/uL Sodium (137-145) mmol/L Potassium (3.5-5.1) mmol/L Chloride (98-107) mmol/L Carbon Dioxide (22-30) mmol/L Anion Gap mmol/L BUN (9-20) mg/dL Creatinine (0.66-1.25) mg/dL Est GFR (MDRD) Af Amer (>60 ml/min/1.73 sqM) Est GFR (MDRD) Non-Af (>60 ml/min/1.73 sqM) Glucose (74-99) mg/dL Plasma Lactic Acid Humberto (0.7-2.0) mmol/L Calcium (8.4-10.2) mg/dL Total Bilirubin (0.2-1.3) mg/dL AST (17-59) U/L ALT (21-72) U/L Alkaline Phosphatase (38-126) U/L Troponin I <0.012 (0.000-0.034) ng/mL NT-Pro-B Natriuret Pep 440 pg/mL Total Protein (6.3-8.2) g/dL Albumin (3.5-5.0) g/dL Lipase (23-300) U/L Influenza Type A RNA Not Detected (Not Detectd) Influenza Type B (PCR) Not Detected (Not Detectd) Disposition Clinical Impression: Pancreatitis, Transaminitis, Nausea and vomiting Disposition: ADMITTED IP TO THIS [facility] Decision to Admit Reason: Admit from EC Decision Date: 06/17/16
[2016-06-17] MEDS ORDERED: NALOXONE 0.4 MG/ML 1 ML VIAL IV PRN (15:11)
[2016-06-17] MEDS ORDERED: ONDANSETRON 4 MG/2 ML VIAL IVP PRN (15:11)
[2016-06-17] MEDS ORDERED: FUROSEMIDE 20 MG TAB PO SCH (15:15)
[2016-06-17] MEDS: SODIUM CHLORIDE 0.9% 1,000 ML IV SCH (15:23)
--- NOTE | 2016-06-17 15:44 | CT ---
EXAMINATION TYPE: CT abdomen pelvis w con DATE OF EXAM: 06/17/2016 3:30 PM COMPARISON: CT chest dated 11/10/[address] abdomen pelvis dated 05/29/2014. HISTORY: Patient complains of bilateral upper quadrant pain and nausea. CT DLP: 1107.4 mGycm Automated exposure control for dose reduction was used. TECHNIQUE: Helical acquisition of images was performed from the lung bases through the pelvis. CONTRAST: Performed without Oral Contrast and with IV Contrast, patient injected with 100 mL of Omnipaque 300. FINDINGS: LUNG BASES: Sutures noted along the right hemidiaphragm. Bibasilar atelectasis is also seen. Coronary artery stent/graphs and extensive calcifications are noted. Cardiac size is mildly enlarged. Right h emidiaphragm is again elevated, unchanged from the prior. LIVER/GB: Degree of intrahepatic and extrahepatic biliary ductal dilatation has increased from the pr ior exam. Few scattered parenchymal calcifications are seen within the hepatic parenchyma. Hypoattenu ated hepatic mass of the left lobe measuring 2.4 cm is unchanged dating back to 05/19/2014 and although it is not entirely compatible with a simple cyst, benign etiology is favored given stability. The ga llbladder is surgically absent. PANCREAS: Pancreatic atrophy and parenchymal calcifications are sequela of chronic pancreatitis. No o vert ductal dilatation. SPLEEN: Few splenic calcifications are sequela of granulomatous disease. ADRENALS: Adrenal glands are unremarkable. KIDNEYS: There is bilateral cortical renal atrophy and 2 nonobstructing 1 to 2 mm left lower pole nate al calculus as well as a nonobstructing right 6 mm mid to lower pole renal calculus. FREE AIR: No free air is visualized. RETROPERITONEAL ADENOPATHY: None visualized REPRODUCTIVE ORGANS: No significant abnormality is seen URINARY BLADDER: There is a new central urinary bladder calculus measuring 1.0 cm. Impression by the nodular prostate is seen of the urinary bladder posteriorly. PELVIC ADENOPATHY: None visualized. OSSEOUS STRUCTURES: Left-sided laminectomy defect is present at S1 with adjacent left-sided paraspin al musculature atrophy. Degenerative changes are appreciated of the osseous structures. BOWEL: Midline abdominal hernia containing mesenteric fat and large bowel is now seen. No evidence o f proximal bowel obstruction to indicate incarceration. Postsurgical changes are present of the ascen ding colon. Colonic sigmoid diverticulosis without evidence of diverticulitis is present. OTHER: None IMPRESSION: 1. PROGRESSIVE DEGREE OF INTRAHEPATIC AND EXTRAHEPATIC BILIARY DUCTAL DILATATION STATUS POST CHOLECYS TECTOMY. RECOMMENDATION IS FOR NONEMERGENT MRCP WITH AND WITHOUT INTRAVENOUS CONTRAST TO EVALUATE FOR BILIARY TREE/PERIAMPULLARY MASS, DISTAL STRICTURE OR ABNORMAL ENHANCEMENT. 2. NEW CENTRAL 1.0 CM URINARY BLADDER CALCULUS. 3. SEQUELA OF CHRONIC PANCREATITIS. 4. STABLE HEPATIC LESION, FAVORED TO BE BENIGN IN ETIOLOGY. 5. NONOBSTRUCTING BILATERAL RENAL CALCULI AND BILATERAL CORTICAL RENAL ATROPHY COMPATIBLE WITH MEDICA L RENAL DISEASE.
[2016-06-17] MEDS: IPRATROPIUM-ALBUTEROL 3 ML NEB INHALATION SCH ×2 (16:57→21:05)
--- NOTE | 2016-06-17 18:23 | HP ---
DATE OF ADMISSION: Patient is an 89-year-old gentleman who came in with complaints of severe right upper quadrant abdominal pain and epigastric abdominal pain, sharp in nature, 9/10, along with fever, chills and shaking. Patient is found high-grade fever of 102. Patient is found to have elevated lipase. Patient denied any dysuria, nausea, vomiting. Patient denied any shortness of breath. Patient denied any shortness of breath, cough, runny nose. Patient denied any dysuria. REVIEW OF SYSTEMS: GENERAL: As described in HPI. CONSTITUTIONAL: No fever, no malaise, no fatigue. HEENT: No recent visual problems or hearing problems. Denied any sore throat. CARDIOVASCULAR: No chest pain, orthopnea, PND, no palpitations, no syncope. PULMONARY: No shortness of breath, no cough, no hemoptysis. GASTROINTESTINAL: As described in HPI. Patient was nauseous, did not vomit yet. Denied any diarrhea. Patient is occasionally constipated. NEUROLOGICAL: No headaches, no weakness, no numbness. HEMATOLOGICAL: Denies any bleeding or petechiae. GENITOURINARY: Denies any burning micturition, frequency, or urgency. MUSCULOSKELETAL/RHEUMATOLOGICAL: Denies any joint pain, swelling, or any muscle pain. ENDOCRINE: Denies any polyuria or polydipsia. The rest of the 14 point review of systems is negative. Patient had a CT of the abdomen which showed changes consistent with chronic pancreatitis and dilated bile ducts, although patient had cholecystectomy in the past. Patient also is found to have a stone in the urinary bladder as well as some non-obstructive nephrolithiasis. I do not have any UA available, which will be obtained along with urine culture. Patient does not appear to have any hydronephrosis on the CT of the abdomen. Does not have any flank pain. HOME MEDICATIONS: 1. Atenolol. 2. Budesonide/formoterol. 3. Cyanocobalamin. 4. Lasix. 5. Omeprazole. 6. Mesalamine. 7. Alprazolam. 8. Pravastatin. 9. Ipratropium. 10. Albuterol. 11. Hydrocodone/acetaminophen. 12. Loratadine. 13. Fluticasone. 14. Docusate. 15. Cholecalciferol. Past medical history is significant for: 1. COPD. 2. CKD, stage II. 3. Bowel resection. 4. Patient had cancer. 5. Coronary artery bypass grafting. 6. Cardiac catheterization in the past. 7. Crohn's disease. 8. Anxiety. 9. Depression. SOCIAL HISTORY: Former smoker. Only smoked briefly in his teenage years. Denied any alcohol abuse or any drug abuse. FAMILY HISTORY: Father had COPD. Father at age 81. Mother had cancer and renal disease. PHYSICAL EXAMINATION: Temperature 98.7, pulse of 88, respiratory rate of 18. Blood pressure is 115/57. Saturating at 97% on room air. Jcleyc-bwke-uyau T-max is 101.9. GENERAL: The patient is alert and oriented x3, not in any acute distress. Well developed, well nourished. HEENT: Pupils are round and equally reacting to light. EOMI. No scleral icterus. No conjunctival pallor. Normocephalic, atraumatic. No pharyngeal erythema. No thyromegaly. CARDIOVASCULAR: S1 and S2 present. No murmurs, rubs, or gallops. PULMONARY: Chest is clear to auscultation, no wheezing or crackles. ABDOMEN: Patient's abdomen is soft, but he does have epigastric and right upper quadrant tenderness. No rebound or rigidity. MUSCULOSKELETAL: No joint swelling or deformity. EXTREMITIES: No cyanosis, clubbing, or pedal edema. NEUROLOGICAL: Gross neurological examination did not reveal any focal deficits. SKIN: No rashes. LABORATORY DATA: CBC, CMP are abnormal for elevated BUN of 27, creatinine 1.44. AST is 579. ALT is 250. Alkaline phosphatase is 141. Lipase is 9713. ASSESSMENT AND PLAN: 1. Sepsis, probably secondary to ascending cholangitis or even pancreatitis ( ) considered as necrotizing pancreatitis, although there is no evidence of that on CT. Patient will be started on Meropenem empirically. We can step down the antibiotic, depending on his clinical course. Gastroenterology will be consulted. Patient has biliary ductal dilatation, both intrahepatic and extrahepatic, along with possibility of ampullary mass, because of which I will consult Gastroenterology. 2. Chronic pancreatitis as per the CT. 3. Nephrolithiasis; incidental finding. 4. Acute renal failure due to sepsis. Patient may have chronic kidney disease from hypertensive nephrosclerosis. Anyways, patient's Lasix will be held. Patient will be started on IV fluids. Patient will be n.p.o. for today. 5. Hypertension. Patient is actually hypotensive, because of which I will change his atenolol to metoprolol and Lasix will be held. 6. Chronic obstructive pulmonary disease without any acute exacerbation.
[2016-06-17] MEDS: SYMBICORT 80-4.5 MCG INHALER INHALATION SCH (21:05)
[2016-06-17] MEDS: METOPROLOL TARTRATE 12.5 MG TAB PO SCH (21:32)
[2016-06-17] MEDS: PANTOPRAZOLE 40 MG TABLET PO SCH (21:32)
[2016-06-17] MEDS: PRAVASTATIN SODIUM 40 MG TAB PO SCH (21:33)
[2016-06-18] MEDS: MEROPENEM 1 GM in SODIUM CHLORIDE 0.9% 100 ML IVPB SCH ×3 (00:25→16:39)
[2016-06-18] MEDS: SODIUM CHLORIDE 0.9% 1,000 ML IV SCH ×5 (00:28→22:35)
[2016-06-18 03:24] LABS: Appearance,Urine Clear (Clear); Bacteria,Urine Rare /hpf; Bilirubin,Urine Negative (Negative); Glucose,Urine (UA) Negative (Negative); Ketones,Urine Negative (Negative); Leukocyte Esterase,Urine Moderate (Negative); Nitrite,Urine Positive (Negative); Particle Count 1799; Protein,Urine Trace (Negative); RBC,Urine 49 /hpf (0-5); Specific Gravity,Urine 1.038 (1.001-1.035); Squamous Epithelial Cell,Urine <1 /hpf (0-4); UA Billing (MACRO vs. MICRO) MICRO; Urobilinogen,Urine <2.0 mg/dL (<2.0); WBC,Urine 17 /hpf (0-5)
[2016-06-18] MEDS: SYMBICORT 80-4.5 MCG INHALER INHALATION SCH ×2 (07:47→21:24)
[2016-06-18] MEDS: IPRATROPIUM-ALBUTEROL 3 ML NEB INHALATION SCH ×4 (07:47→21:24)
[2016-06-18 07:51] LABS: Basophils % (A) 0 %; CH 32.8; CHCM 32.8; Eosinophils % (A) 0 %; HDW 2.36; HGB 12.6 gm/dL (13.0-17.5); Luc # (Auto) 0.08; Luc % (Auto) 1; Lymphocytes # (A) 0.3 k/uL (1.0-4.8); Lymphocytes % (A) 3 %; MCH 33.3 pg (25.0-35.0); MCHC 33.1 g/dL (31.0-37.0); MCV 100.4 fL (80.0-100.0); Mean Platelet Volume 6.9; Monocytes # (A) 0.4 k/uL (0-1.0); Monocytes % (A) 4 %; Neutrophils # (A) 10.1 k/uL (1.3-7.7); Neutrophils % (A) 93 %; RBC 3.78 m/uL (4.30-5.90); RDW 12.9 % (11.5-15.5); WBC (Perox) 10.22
[2016-06-18] MEDS ORDERED: ATENOLOL 12.5 MG TAB PO SCH (08:00)
[2016-06-18 08:05] LABS: Calcium 8.1 mg/dL (8.4-10.2); Magnesium 1.9 mg/dL (1.6-2.3); Phosphorous 3.8 mg/dL (2.5-4.5); Total Bilirubin 2.3 mg/dL (0.2-1.3); Total Protein 5.4 g/dL (6.3-8.2)
[2016-06-18] MEDS: FLUTICASONE 50MCG/SPRAY NASAL 16GM EA NOSTRIL SCH (08:37)
[2016-06-18] MEDS: PANTOPRAZOLE 40 MG TABLET PO SCH ×2 (08:37→16:40)
[2016-06-18] MEDS: METOPROLOL TARTRATE 12.5 MG TAB PO SCH ×2 (08:37→22:13)
[2016-06-18] MEDS: ASPIRIN 81 MG CHEW PO SCH (08:41)
--- NOTE | 2016-06-18 10:09 | CONS ---
DATE OF CONSULTATION: 06/18/2016 Requesting physician: Dr. Alford. REASON FOR CONSULTATION: Acute biliary pancreatitis and ascending cholangitis. HISTORY OF PRESENT ILLNESS: The patient is an 89-year-old pleasant white male with remote history of cholecystectomy, was admitted to the hospital with severe epigastric right upper quadrant abdominal pain that started yesterday morning. Pain continued to progressively get worse associated fever, chills and temperature of 102. Came into the emergency room and was noted to have elevated LFTs, jaundice and elevated lipase consistent with acute biliary pancreatitis. In the meantime, he also had gram-negative bacteremia suggestive of ascending cholangitis. The patient this morning is feeling much better. The abdominal pain has almost resolved. He denies any further episodes of nausea, vomiting. Overall, he is feeling much better. He never had similar symptoms in the past. Past medical history is significant for hypertension, hypercholesterolemia, coronary artery disease; he is status post CABG many years ago, gastroesophageal reflux disease, history of peptic ulcer disease for which he underwent surgery for duodenal ulcer bleeding in 2014. MEDICATIONS AT HOME: Atenolol, budesonide, vitamin B12, Lasix, omeprazole, mesalamine, Xanax, pravastatin, albuterol, [place], loratadine, fluticasone, docusate and cholecalciferol. PAST SURGICAL HISTORY: CABG, cholecystectomy, history of Crohn disease for which he had bowel resection. SOCIAL HISTORY: Former smoker. No alcohol use. FAMILY HISTORY: Father had COPD. Mother had kidney disease. REVIEW OF SYSTEMS: CARDIOPULMONARY: No chest pain or shortness of breath. GENITOURINARY: No dysuria or hematuria. MUSCULOSKELETAL: Unremarkable. SKIN: Unremarkable. ENDOCRINE: Unremarkable. PSYCHIATRIC: Unremarkable. NEUROLOGY: Unremarkable. ENT/VISION: Unremarkable. CONSTITUTIONAL: No recent weight loss. No fever, chills, night sweats. On physical examination, T-max 99.6; this morning, temperature 97. Blood pressure 132/58 and pulse is 78. HEENT: Unremarkable. Conjunctivae are pink. Sclerae ( ). Oral cavity, no lesions. NECK: No JVD or lymph node enlargement. Chest was clear to auscultation. HEART: Regular rate and rhythm. ABDOMEN: Soft, mild tenderness in the epigastric and right upper quadrant area. Bowel sounds are positive. No organomegaly. EXTREMITIES: No pedal edema. SKIN: No rashes. NEURO: Alert and oriented x3. No focal deficits. Labs done yesterday WBC was 7.5, this morning it is 11, hemoglobin 14.2, platelets of 108. BUN 32, creatinine 1.7. T-bili was 3.3 yesterday, it is down to 2.3, AST was 579 yesterday today 278, ALT 250 yesterday and 245 today. Alk phos is 107. Lipase was 9713 yesterday and today it is 607. Blood gram negative bacilli. IMPRESSION: This is a patient who presents with acute onset of epigastric and right upper quadrant abdominal pain with fever, chills and nausea, vomiting for the last 24 hours duration and noted to have elevated amylase and lipase as well as elevated LFTs, all consistent with acute biliary pancreatitis most likely related to retained common bile duct stone. He did have a CT of the abdomen and pelvis done in the emergency room that showed intra and extrahepatic biliary ductal dilation. He is presently on broad-spectrum antibiotics for gram-negative bacteremia/ascending cholangitis and clinically the patient is gradually improving. He has remote history of cholecystectomy for symptomatic gallstones in the . RECOMMENDATIONS: 1. Start him on a clear liquid diet. 2. Repeat labs in the morning. 3. We will proceed with an ERCP in the next 24 to 48 hours based on his overall medical condition. 4. No indication to proceed with an emergent ERCP today. Thank you for this consultation. Will follow the patient closely during his hospital stay.
--- NOTE | 2016-06-18 11:56 | PN ---
The patient is an 89-year-old admitted with pancreatitis with a possibility of ascending cholangitis. Patient has gram negative bacteremia, probably from ascending cholangitis. Will repeat blood cultures today and tomorrow. The patient was on meropenem, which should cover that. Until we get the finalization of the cultures I will go ahead and continue with meropenem and patient has significant improvement symptomatically. His generalized malaise and tiredness improved quite a bit. The patient denied any UTI symptoms. His kidney function has worsened a bit that is because of possible acute tubular necrosis from severe sepsis and bacteremia, which is expected to improve. Patient has fairly good urine output. Patient's urine is a bit dark, as per the patient is probably because of his hyperbilirubinemia or even acute tubular necrosis causing sloughing of epithelial cells. My suspicion of UTI is extremely low. REVIEW OF SYSTEMS: CARDIOVASCULAR: No chest pain, no orthopnea, no PND, no palpitations. PULMONARY: Denied any shortness of breath. No cough or hemoptysis. ABDOMINAL: The patient's abdominal pain is significantly improved. Patient's diet is being advanced. NEUROLOGIC: No headaches, no weakness, no numbness. Medications were reviewed. PHYSICAL EXAMINATION: Temperature 97.4, pulse of 86, respiratory rate of 16, blood pressure is 122/58, saturating at 97% on 2 L of O2 by nasal cannula. GENERAL: The patient is alert and oriented x3, not in any acute distress. Well developed, well nourished. HEENT: Pupils are round and equally reacting to light. EOMI. No scleral icterus. No conjunctival pallor. Normocephalic, atraumatic. No pharyngeal erythema. No thyromegaly. CARDIOVASCULAR: S1 and S2 present. No murmurs, rubs, or gallops. PULMONARY: Chest is clear to auscultation, no wheezing or crackles. ABDOMEN: Soft, nontender, nondistended, normoactive bowel sounds. No palpable organomegaly. MUSCULOSKELETAL: No joint swelling or deformity. EXTREMITIES: No cyanosis, clubbing, or pedal edema. NEUROLOGICAL: Gross neurological examination did not reveal any focal deficits. SKIN: No rashes. LABORATORY DATA: WBC count has gone up to 11,000 and BUN of 32, creatinine 1.70. Bilirubin is 2.3 came down from 3.3. AST and ALT have come down. Lipase has come down. ASSESSMENT AND PLAN: 1. Sepsis is probably due to ascending cholangitis and patient does have severe pancreatitis as well. Patient was started on meropenem because of that and continue with meropenem. Patient was found to be bacteremic, probably because of ascending cholangitis. An ERCP is being planned for tomorrow or the day after. As of now, patient is doing much better. Continue with meropenem. Continue with IV fluids. 2. Chronic pancreatitis as per the CT. Incidental finding of nephrolithiasis. 3. Acute renal failure secondary to prerenal azotemia as well as possible acute tubular necrosis. Will continue with IV fluids. 4. Hypertension. Continue to hold off on antihypertensive medications because of his severe sepsis. 5. Chronic obstructive pulmonary disease without any acute exacerbation.
[2016-06-18] MEDS: PRAVASTATIN SODIUM 40 MG TAB PO SCH (22:13)
[2016-06-18] MEDS: MORPHINE SULFATE 4 MG/ML SYRINGE IV PRN (22:14)
[2016-06-19] MEDS: MEROPENEM 1 GM in SODIUM CHLORIDE 0.9% 100 ML IVPB SCH ×4 (02:05→23:50)
[2016-06-19] MEDS: MORPHINE SULFATE 4 MG/ML SYRINGE IV PRN (02:12)
[2016-06-19] MEDS: SYMBICORT 80-4.5 MCG INHALER INHALATION SCH ×2 (05:06→20:29)
[2016-06-19] MEDS: IPRATROPIUM-ALBUTEROL 3 ML NEB INHALATION SCH ×4 (05:06→20:29)
[2016-06-19 06:33] LABS: Glucose,Whole Blood 88 mg/dL (75-99)
[2016-06-19 08:59] LABS: Basophils % (A) 0 %; CH 32.9; CHCM 32.5; Eosinophils # (A) 0.1 k/uL (0-0.7); Eosinophils % (A) 1 %; HCT 37.2 % (39.0-53.0); HDW 2.33; HGB 12.1 gm/dL (13.0-17.5); Luc % (Auto) 2; Lymphocytes # (A) 0.3 k/uL (1.0-4.8); Lymphocytes % (A) 6 %; MCHC 32.4 g/dL (31.0-37.0); MCV 101.7 fL (80.0-100.0); Macrocytosis Slight; Mean Platelet Volume 7.8; Monocytes # (A) 0.4 k/uL (0-1.0); Monocytes % (A) 7 %; Neutrophils # (A) 4.6 k/uL (1.3-7.7); Neutrophils % (A) 84 %; RBC 3.66 m/uL (4.30-5.90); RDW 12.8 % (11.5-15.5); WBC 5.5 k/uL (3.8-10.6); WBC (Perox) 5.29
[2016-06-19 09:08] LABS: Calcium 8.1 mg/dL (8.4-10.2); Potassium 4.4 mmol/L (3.5-5.1); Total Bilirubin 2.3 mg/dL (0.2-1.3); Total Protein 5.2 g/dL (6.3-8.2)
[2016-06-19 09:25] LABS: Manual Review Performed
[2016-06-19] MEDS: FLUTICASONE 50MCG/SPRAY NASAL 16GM EA NOSTRIL SCH (09:37)
[2016-06-19] MEDS: ASPIRIN 81 MG CHEW PO SCH (09:37)
[2016-06-19] MEDS: METOPROLOL TARTRATE 12.5 MG TAB PO SCH ×2 (09:37→20:12)
[2016-06-19] MEDS: PANTOPRAZOLE 40 MG TABLET PO SCH ×2 (09:37→15:41)
[2016-06-19] MEDS: SODIUM CHLORIDE 0.9% 1,000 ML IV SCH ×2 (09:38→12:22)
--- NOTE | 2016-06-19 10:08 | PN ---
DATE OF SERVICE: 06/19/2016 Patient is an 89-year-old pleasant white male admitted to the hospital with abdominal pain, nausea, vomiting and acute biliary pancreatitis. He was started on broad-spectrum antibiotics for gram-negative bacteremia and overall he is doing much better. He, however, did have some fever and chills this morning with some epigastric discomfort that lasted for half an hour then resolved. He is on a clear liquid diet, tolerating well. No fever, chills or night sweats. On physical examination, he appears comfortable in no apparent distress. Vitals as are stable. Temperature 98.3. Blood pressure 124/69, pulse rate 91. HEENT EXAMINATION: Unremarkable. Conjunctivae pink. Sclerae anicteric. Oral cavity, no lesions. NECK: No JVD or lymph node enlargement. CHEST: Clear to auscultation. HEART: Regular rate and rhythm. ABDOMEN: Soft. Mild tenderness in the epigastric area. Bowel sounds are positive. No organomegaly. EXTREMITIES: No pedal edema. SKIN: No rashes. NEURO: Alert and oriented x2. No focal deficits. LABS: WBC 5.5, hemoglobin 12, platelets normal. Amylase 183. Lipase is 1159. T-bili is 2.3. AST 141, ALT 160, alk phos 129, BUN 38, creatinine 1.58. IMPRESSION: 1. Acute biliary pancreatitis, possibly to retained common bile duct stones, status post gallbladder surgery 30 years ago for symptomatic gallstones. 2. Ascending cholangitis with gram-negative bacteremia gradually improving. 3. Elevated BUN and creatinine. RECOMMENDATIONS: 1. Continue with a clear liquid diet. 2. Continue with broad-spectrum antibiotics. 3. Will repeat labs in the morning. If the pancreatitis is improving, I will proceed with an ERCP tomorrow. I discussed with the patient risks, benefits and complications and he is agreeable to it. Thank you for this consultation.
--- NOTE | 2016-06-19 17:00 | PN ---
DATE OF SERVICE: 06/19/2016 PRESENTING COMPLAINT: Right upper quadrant pain. INTERVAL HISTORY: This is an 89-year-old gentleman who presented to the emergency department with right upper quadrant pain awaking him from sleep. Today patient is able to tolerate clear liquids, although still has some tenderness to the right upper quadrant. Review of systems done for constitutional, cardiovascular, GI, pulmonary with relevant findings as above. CURRENT MEDICATIONS: DuoNeb, aspirin, Symbicort, fluticasone, meropenem, morphine, Zofran, Protonix, Pravachol, normal saline. PHYSICAL EXAMINATION: VITAL SIGNS: Temperature 96.8, pulse 67, respirations 18, blood pressure 126/64, oxygen saturation 96% on 2 liters nasal cannula. GENERAL APPEARANCE: Patient is awake, alert, lying in bed. No acute distress noted or voiced. EYES: Pupils equal. Conjunctivae normal. NECK: JVD not raised. Mass not palpable. Respiratory effort normal. LUNGS: Clear to auscultation bilaterally. CARDIOVASCULAR: S1, S2 sounds are normal. No edema noted. ABDOMEN: Soft, tender to the right upper quadrant. Liver and spleen not palpable. PSYCHIATRIC: Alert and oriented x3. Mood and affect are normal. INVESTIGATIONS: WBCs 5.5 down from 11.0 on 06/18, sodium 136, BUN 34, creatinine 1.58, total bilirubin 2.3, AST 141, ALT 160, alk phos 129. Lipase 1159, amylase 183. ASSESSMENT: 1. Sepsis, probably secondary to ascending cholangitis or even pancreatitis. Patient started on meropenem. Gastroenterology has been consulted. 2. ERCP in the 24 to 48 hours. 3. Chronic pancreatitis failing to improve. Continue clear liquids and await further recommendations from Gastroenterology. 4. Acute renal failure due to sepsis. Patient may have chronic kidney disease from hypertensive nephrosclerosis. Will continue to hold Lasix. IV fluids to be started. 5. Hypertension. Currently patient's blood pressure is under control. Will continue to monitor the need for medications and adjust accordingly. 6. Chronic obstructive pulmonary disease, acute exacerbation. Patient was seen and examined by ADI Burgess and all elements of the case were discussed with the attending, Dr. Santiago.
[2016-06-19] MEDS: PRAVASTATIN SODIUM 40 MG TAB PO SCH (20:12)
[2016-06-20 07:23] LABS: Basophils % (A) 0 %; CH 32.9; CHCM 32.1; Eosinophils # (A) 0.1 k/uL (0-0.7); Eosinophils % (A) 4 %; HCT 36.8 % (39.0-53.0); HDW 2.24; HGB 11.6 gm/dL (13.0-17.5); Luc # (Auto) 0.15; Luc % (Auto) 4; Lymphocytes # (A) 0.4 k/uL (1.0-4.8); Lymphocytes % (A) 11 %; MCH 32.4 pg (25.0-35.0); MCHC 31.4 g/dL (31.0-37.0); MCV 103.1 fL (80.0-100.0); Macrocytosis Slight; Mean Platelet Volume 7.5; Monocytes # (A) 0.2 k/uL (0-1.0); Monocytes % (A) 6 %; Neutrophils # (A) 2.8 k/uL (1.3-7.7); Neutrophils % (A) 75 %; RBC 3.57 m/uL (4.30-5.90); RDW 12.9 % (11.5-15.5); WBC 3.7 k/uL (3.8-10.6); WBC (Perox) 3.95
--- NOTE | 2016-06-20 07:31 | PN ---
DATE OF SERVICE: 06/19/2016 ATTENDING NOTES: This patient was seen and examined by me today. Patient was admitted with ascending cholangitis secondary to possibly gallstones. Patient is pending ERCP. Patient also has pancreatitis. Feeling weak and tired. Some right upper quadrant pain is still present. Sitting up in bed. On examination, afebrile. LUNGS: Clear, decreased breath sounds. CARDIOVASCULAR: First and second sounds normal. ABDOMEN: Right upper quadrant tenderness. No guarding or rigidity. PSYCHIATRY: Alert and oriented x3. INVESTIGATIONS: White count 5.5, hemoglobin 12.1, potassium 4.4. BUN 34, creatinine 1.58, AST 141, ALT 160. Albumin 2.9, amylase 183, lipase 1159. ASSESSMENT: 1. Acute ascending cholangitis causing sepsis on presentation with blood cultures positive for gram-negative bacilli. 2. Acute renal failure due to sepsis likely causing underlying acute tubular necrosis. 3. Essential hypertension. 4. Chronic obstructive pulmonary disease. 5. Thrombocytopenia, likely from underlying sepsis, acute. 6. 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 7. Hypoalbuminemia as an acute phase reactant. 8. Acute biliary pancreatitis fluctuating, probably due to common bile duct stone. PLAN: At this point continue with current medication and treatment plan including IV meropenem, IV fluids. Care was discussed with the patient. Patient is slow to respond overall. I reviewed the note of my nurse practitioner. I agree with it except for changes as above.
[2016-06-20] MEDS: IPRATROPIUM-ALBUTEROL 3 ML NEB INHALATION SCH ×4 (07:33→20:50)
[2016-06-20] MEDS: SYMBICORT 80-4.5 MCG INHALER INHALATION SCH ×2 (07:34→20:50)
[2016-06-20 07:38] LABS: ALT 106 U/L (21-72); AST 77 U/L (17-59); Alkaline Phosphatase 125 U/L (38-126); Amylase 42 U/L (30-110); Anion Gap 5 mmol/L; Blood Urea Nitrogen 21 mg/dL (9-20); Calcium 8.3 mg/dL (8.4-10.2); Carbon Dioxide 25 mmol/L (22-30); Chloride 108 mmol/L (98-107); Glucose 97 mg/dL (74-99); Non-African American GFR(MDRD) 55 (>60 ml/min/1.73 sqM); Potassium 4.5 mmol/L (3.5-5.1); Sodium 138 mmol/L (137-145)
[2016-06-20] MEDS: FLUTICASONE 50MCG/SPRAY NASAL 16GM EA NOSTRIL SCH (09:22)
[2016-06-20] MEDS: ASPIRIN 81 MG CHEW PO SCH (09:23)
[2016-06-20] MEDS: PANTOPRAZOLE 40 MG TABLET PO SCH ×2 (09:25→19:03)
[2016-06-20] MEDS: METOPROLOL TARTRATE 12.5 MG TAB PO SCH ×2 (09:25→21:49)
[2016-06-20] MEDS: MEROPENEM 1 GM in SODIUM CHLORIDE 0.9% 100 ML IVPB SCH ×2 (09:28→21:49)
[2016-06-20] MEDS ORDERED: SODIUM CHLORIDE 0.9% 500 ML IV ONE (12:06)
[2016-06-20] MEDS ORDERED: GLYCOPYRROLATE 0.2 MG/ML 2 ML VIAL ONE (12:15)
[2016-06-20] MEDS ORDERED: PROPOFOL 10 MG/ML 20 ML VIAL IV ONE (12:15)
[2016-06-20] MEDS ORDERED: IOHEXOL 300 MG/ML 50 ML BOTTLE MISCELLANE ONE (12:21)
--- NOTE | 2016-06-20 12:49 | P.PCN ---
Date of Procedure: 06/20/16 Procedure(s) Performed: Brief history: Patient is a 89 year-old pleasant white male, scheduled for an ERCP as part of evaluation of abdominal pain and elevated serum transaminases, jaundice and acute biliary pancreatitis for which was admitted to the hospital 3 days ago. He also has gram-negative bacteremia/ascending cholangitis and was started on broad-spectrum antibiotics. He is status post cholecystectomy more than 30 years ago for gallstones. Because of the clinical suspicion for retained CBD stones he scheduled for an ERCP today. Procedure performed: ERCP with biliary sphincterotomy and balloon extraction Preoperative diagnoses: Acute biliary pancreatitis/ascending cholangitis IV sedation per anesthesia: Procedure: After informed consent was obtained from the patient and after the risks benefits and complications including bleeding perforation and pancreatitis explained in detail the patient was brought into the endoscopy unit. The patient was placed in prone position and IV conscious sedation was administered by anesthesia under continuous monitoring. The Olympus side-viewing duodenoscope was then inserted into the mouth and esophagus intubated without any difficulty. The scope was gradually advanced into the stomach and duodenum. The major papilla was identified without any difficulty. Initial cannulation resulted in opacification of the pancreatic duct that appeared dilated but no filling defects or strictures identified. Subsequent cannulation resulted in opacification of the common bile duct which was significantly dilated measuring at least 2 cm in diameter. There was a vague filling defect noted in the distal common bile duct. At this time I proceeded with a biliary sphincterotomy after the catheter was exchanged over a guidewire. The biliary sphincterotomy was performed at 12 o'clock position and was extended to 1.5 cm in length. Following this a 15 mm balloon was passed into the proximal CBD, gently inflated and withdrawn and no obvious stones were seen exiting the ampulla. This maneuver was performed 3 or 4 more times and no stones exiting the ampulla. Occlusion cholangiogram was performed at this point no filling defects were noted. The procedure was terminated and the patient tolerated the procedure well. Impression: 1. Dilated pancreatic duct but no filling defects or stricture 2. Dilated common bile duct measuring 2 cm in diameter with a vague filling defect in the distal common bile duct, status post biliary sphincterotomy and balloon extraction as described above. No obvious stones seen exiting the ampulla. Recommendations: The findings of this examination were discussed with the patient as well as a family. He will be started on clear liquid diet today and will be continued on antibiotics. Repeat labs in the morning.
--- NOTE | 2016-06-20 13:59 | FL ---
EXAMINATION TYPE: FL ERCP HISTORY: Fluoroscopy time Impression: 1. Fluoroscopy support provided to the referring physician. 2 minutes and 32 seconds of fluoroscopy p rovided.
[2016-06-20] MEDS: SODIUM CHLORIDE 0.9% 1,000 ML IV SCH ×3 (16:38→16:39)
[2016-06-20] MEDS: PRAVASTATIN SODIUM 40 MG TAB PO SCH (21:49)
--- NOTE | 2016-06-20 22:47 | PN ---
DATE OF SERVICE: 06/20/2016 PRESENTING COMPLAINT: Right upper quadrant pain. INTERVAL HISTORY: This is an 89-year-old gentleman who presented to the emergency department with right upper quadrant pain awakening him from sleep; possibly ascending cholangitis secondary to possible gallstones. Patient is scheduled for an ERCP on 06/20/2016. Patient also has pancreatitis. Today patient is awake, alert, currently n.p.o. for upcoming exam. Some right upper quadrant pain is still present. Review of systems done for constitutional, cardiovascular, GI, pulmonary, with relevant findings as above. CURRENT MEDICATIONS: 1. DuoNeb. 2. Aspirin. 3. Symbicort. 4. Fluticasone. 5. Meropenem. 6. Morphine. 7. Zofran. 8. Protonix. 9. Pravachol. 10. Normal saline IV solution. PHYSICAL EXAMINATION: VITAL SIGNS: Temperature 99.6, pulse 61, respiratory rate 20, blood pressure 142/73, oxygen saturation 92% on room air. GENERAL APPEARANCE: Patient is awake and has been transferred to a rrangely getting ready for his ERCP. No acute distress noted or voiced. Patient is very hard of hearing without his hearing aids. EYES: Pupils equal. Conjunctivae normal. NECK: JVD not raised. Mass not palpable. RESPIRATORY: Effort normal. LUNGS: Clear. Decreased breath sounds bilaterally. CARDIOVASCULAR: First and second sounds normal. No edema. ABDOMEN: Right upper quadrant tenderness. No guarding or rigidity. PSYCHIATRY: Alert and oriented x3. Mood and affect are normal. INVESTIGATIONS: White blood cell count 3.7, hemoglobin 11.6, hematocrit 36.8, platelet count 89. BUN 21, creatinine 1.23. AST 77, ALT 106, alkaline phosphatase 125. Total protein 5.0. Albumin 2.7.
--- NOTE | 2016-06-20 22:56 | PN ---
DATE OF SERVICE: 06/20/2016 This is an 89-year-old gentleman who presented to the emergency department with right upper quadrant pain awakening him from sleep on 06/17/2016. Symptoms concerning for ascending cholangitis secondary to possible gallstones. ERCP scheduled for 06/20/2016. Patient also has pancreatitis. Feeling weak and tired. Right upper quadrant pain continues. Patient is awake, alert, sitting up in bed. Review of systems done for constitutional, cardiovascular, GI, pulmonary, with relevant findings as above. CURRENT MEDICATIONS: DuoNeb, aspirin, Symbicort, fluticasone, Meropenem, morphine, Zofran, Protonix, Pravachol, normal saline IV solution. PHYSICAL EXAMINATION: VITAL SIGNS: Temperature 96.6, pulse 61, respiratory rate 20, blood pressure 142/73, oxygen saturation 92% on room air. GENERAL APPEARANCE: Patient is awake, alert, lying in bed. Awaiting ERCP exam. No acute distress noted or voiced. EYES: Pupils equal. Conjunctivae normal. NECK: JVD not raised. Mass not palpable. RESPIRATORY: Effort normal. LUNGS: Clear, decreased breath sounds. CARDIOVASCULAR: First and second sounds normal. No edema noted. ABDOMEN: Right upper quadrant tenderness. No guarding or rigidity noted. PSYCHIATRY: Alert and oriented x3. Mood and affect normal. Patient is hard of hearing. INVESTIGATIONS: White blood cell count 3.7, hemoglobin 11.6, platelets 89, BUN 21, creatinine 1.23, 3, down from 1.58 on 06/19/2016. Calcium 8.3, AST 77, ALT 106, alkaline phosphatase 125, total protein 5.0, albumin 2.7, amylase 42, lipase 72, down from 06/19 values of amylase 183, lipase 1159. ERCP results from 06/20/2016 impression: dilated pancreatic duct, but no filling defects or strictures. Dilated common bile duct measuring 2 cm in diameter with vague filling defect in the distal common bile duct, status post biliary sphincterotomy and balloon extraction as described above. No obvious stones seen exiting the ampulla. ASSESSMENT: 1. Acute ascending cholangitis causing sepsis on presentation with blood cultures positive for gram-negative bacilli. 2. Acute renal failure due to sepsis likely causing underlying acute tubular necrosis. 3. Essential hypertension. 4. Chronic obstructive pulmonary disease. 5. Thrombocytopenia likely from underlying sepsis, acute. 6. 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 7. Hypoalbuminemia as an acute phase reactant. 8. Acute biliary pancreatitis fluctuating probably due to common bile duct stone. PLAN: Patient is now status post ERCP with sphincterotomy. DC assessments above. The patient to be continued on antibiotics and started on a clear liquid diet. Plan of care was discussed with the patient and the family. Patient was seen and examined by nurse practitioner, Jillian Burgess and all elements of the case were discussed with attending, Dr. Santigao. I performed a history and physical examination of this patient and discussed the same with the dictator. I agree with the dictator's note. Any additional findings/opinions, etc. will be noted.
[2016-06-21] MEDS: SODIUM CHLORIDE 0.9% 1,000 ML IV SCH ×2 (02:44→11:42)
[2016-06-21 07:42] VITALS: RESP 20
[2016-06-21] MEDS: FLUTICASONE 50MCG/SPRAY NASAL 16GM EA NOSTRIL SCH (08:19)
[2016-06-21] MEDS: PANTOPRAZOLE 40 MG TABLET PO SCH (08:19)
[2016-06-21] MEDS: ASPIRIN 81 MG CHEW PO SCH (08:20)
[2016-06-21] MEDS: METOPROLOL TARTRATE 12.5 MG TAB PO SCH (08:20)
[2016-06-21 08:36] LABS: CH 33.3; CHCM 33.5; HCT 36.3 % (39.0-53.0); HDW 2.47; HGB 12.3 gm/dL (13.0-17.5); MCH 33.9 pg (25.0-35.0); MCV 99.8 fL (80.0-100.0); Mean Platelet Volume 7.6; RBC 3.63 m/uL (4.30-5.90); RDW 12.8 % (11.5-15.5); WBC 4.1 k/uL (3.8-10.6)
[2016-06-21] MEDS: SYMBICORT 80-4.5 MCG INHALER INHALATION SCH (09:28)
[2016-06-21] MEDS: IPRATROPIUM-ALBUTEROL 3 ML NEB INHALATION SCH ×3 (09:29→16:41)
[2016-06-21 09:46] LABS: Amylase 31 U/L (30-110); Anion Gap 5 mmol/L; Blood Urea Nitrogen 16 mg/dL (9-20); Calcium 8.8 mg/dL (8.4-10.2); Carbon Dioxide 26 mmol/L (22-30); Chloride 108 mmol/L (98-107); Glucose 89 mg/dL (74-99); Non-African American GFR(MDRD) 59 (>60 ml/min/1.73 sqM); Potassium 4.5 mmol/L (3.5-5.1); Sodium 139 mmol/L (137-145)
[2016-06-21] MEDS: MEROPENEM 1 GM in SODIUM CHLORIDE 0.9% 100 ML IVPB SCH (11:42)
--- NOTE | 2016-06-21 12:01 | P.PN ---
Subjective Principal diagnosis: Obstructive jaundice choledocholithiasis 89-year-old male admitted with gram-negative E. Coli bacteremia and ascending cholangitis suspected secondary to choledocholithiasis status post ERCP yesterday with sphincterotomy with filling defect distal CBD but obvious stone(s ) were seen exiting the ampulla. Feels well today. Afebrile. White count 4.1. Hemoglobin 12.3. Platelet 108. Liver chemistries not obtained today, total bilirubin 1.0 yesterday. Objective - Vital Signs Vital signs: Vital Signs Temp 98.5 F 06/21/16 07:00 Pulse 82 06/21/16 09:39 Resp 20 06/21/16 08:00 BP 133/70 06/21/16 07:00 Pulse Ox 93 L 06/21/16 07:05 Intake & Output 06/20/16 06/21/16 06/21/16 18:59 06:59 18:59 Intake Total 1120 1989 Balance 1120 1989 Weight 94.5 kg Intake: IV 200 800 Sodium Chloride 0.9% 1, 800 000 ml @ 100 mls/hr IV . Q10H [facility] Rx#:[id number] Intake, IV Titration 800 600 Amount Meropenem 1 gm In Sodium 100 Chloride 0.9% 100 ml @ 200 mls/hr IVPB Q12HR [facility] Rx#:[id number] Meropenem 1 gm In Sodium 100 Chloride 0.9% 100 ml @ 200 mls/hr IVPB Q8HR [facility] Rx#:[id number] Sodium Chloride 0.9% 1, 700 500 000 ml @ 100 mls/hr IV . Q10H [facility]A Rx#:[id number] Oral 120 590 Other: Voiding Method Toilet Toilet Toilet Urinal Urinal # Voids 3 2 - Exam General appearance: The patient is alert, oriented, in no acute distress. HET: Head is normocephalic and atraumatic. Pupils are equal and reactive. Oropharynx is clear without lesions. Neck: Supple without lymphadenopathy. Trachea midline. Heart: S1 S2. Regular rate and rhythm. Lungs: No crackles or wheezes are heard. Abdomen: Soft, nontender, nondistended with bowel sounds. No peritoneal signs. No palpable organomegaly or masses. Extremities: Normal skin color and turgor. No cyanosis, rash, ulceration, clubbing, or edema. Radial and pedal pulses are 2/4 bilaterally. Neurological: No focal deficits. Strength and sensation are grossly intact. - Labs CBC & Chem 7: 06/21/16 08:23 06/21/16 08:23 Labs: Abnormal Lab Results - Last 24 Hours (Table) 06/21/16 06/21/16 Range/Units 08:23 08:23 RBC 3.63 L (4.30-5.90) m/uL Hgb 12.3 L (13.0-17.5) gm/dL Hct 36.3 L (39.0-53.0) % Plt Count 108 L (150-450) k/uL Chloride 108 H (98-107) mmol/L Microbiology - Last 24 Hours (Table) 06/19/16 07:35 Blood Culture - Preliminary Blood No Growth after 48 hours 06/18/16 10:45 Blood Culture - Preliminary Blood No Growth after 48 hours Assessment and Plan (1) Sepsis Narrative/Plan: s/p ERCP sphincterotomy Status: Acute (2) Acute cholangitis Narrative/Plan: suspected choldedocholithiasis Status: Acute (3) Gram-negative bacteremia Status: Acute Plan: 1. Advance diet. 2. Agreeable for DC per medicine with antibiotics 7-10 days. Assessment and plan of care discussed with Dr. Oviedo.
--- NOTE | 2016-06-21 13:44 | PN ---
DATE OF SERVICE: 06/20/2016 Zeus Good. This patient was seen and examined by me on 06/20/2016. I agree with the nose from the nurse practitioner, Ms. Burgess except for the changes below. This is patient who presented with right upper quadrant pain with ascending cholangitis, awaiting ERCP today. Some pain is present. Mild nausea. On examination, ABDOMEN: Right upper quadrant tenderness. No guarding or rigidity. PSYCH: Alert and oriented x3. INVESTIGATIONS: White count 3.7, hemoglobin 11.6, potassium 4.5, AST 77, ALT 106, amylase, lipase down to normal. ASSESSMENT: 1. Acute ascending cholangitis causing sepsis on presentation with blood cultures positive for gram-negative bacilli. 2. Acute renal failure, likely acute tubular necrosis due to sepsis. 3. Acute biliary pancreatitis fluctuating, probably due to common bile duct stone. PLAN: Continue current medication and treatment plan. Awaiting ERCP. I saw the patient earlier today. Later on, patient did get sphincterotomy. Will follow.
[2016-06-21 14:27] VITALS: BP 116/54; TEMP 98.1
[2016-06-21 16:34] VITALS: PULSE 86
--- NOTE | 2016-06-22 12:47 | DS ---
DATE OF ADMISSION: 06/17/2016 DATE OF DISCHARGE: 06/21/2016 FINAL DIAGNOSES: 1. Acute ascending cholangitis causing sepsis on presentation. Blood culture is positive for Escherichia coli. 2. Acute renal failure due to sepsis causing acute tubular necrosis on presentation. 3. Essential hypertension. 4. Chronic obstructive pulmonary disease. 5. Thrombocytopenia, likely underlying sepsis. 6. 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 7. Hypoalbuminemia as an acute phase reactant. 8. Acute biliary pancreatitis fluctuating, probably due to common bile duct stone. CONSULTATION: Dr. Domenica Oviedo from GI. HOSPITAL COURSE: This patient presented with abdominal pain, nausea, vomiting, felt to have acute cholangitis. Blood cultures are positive for E. coli, repeat one becoming negative. Patient did undergo ERCP by Dr. Domenica Oviedo and she did carry out a biliary sphincterotomy and balloon extraction. Patient was feeling much better at the time of discharge. Pain is resolved. Afebrile. White count was normal. Care was discussed with the patient and family at the bedside. Patient's liver function has come down. Amylase and lipase have normalized. On exam, LUNGS: Decreased breath sounds. ABDOMEN: Soft, nontender. DISCHARGE MEDICATIONS: 1. Tenormin 12.5 p.o. daily. 2. Symbicort 80/4.5 two puffs b.i.d. 3. Vitamin B12 one thousand mcg q. monthly. 4. Lasix 20 mg Monday, Monday, Monday. 5. Mesalamine 800 mg p.o. b.i.d. 6. Pravachol 40 mg p.o. q.h.s. 7. Magnesium-oxide 400 mg p.o. q. daily. 8. Xanax 0.5 p.o. b.i.d. p.r.n. 9. DuoNeb q.i.d. 10. Flonase one spray each nostril daily. 11. Claritin 10 mg p.o. daily. 12. Vitamin D3 one thousand units p.o. daily. 13. Colace 100 mg p.o. b.i.d. p.r.n. 14. [place] 5 one tablet q.4 p.r.n. 15. Prostate 20 mg p.o. b.i.d. 16. Aspirin 81 mg p.o. daily. 17. Levaquin 750 mg p.o. daily for 7 days. Follow up with Dr. Alford in one week; follow up with Dr. Domenica Oviedo on 06/28/2016. Follow up with labs CBC, CMP on 06/27/2016. DIET: Heart-healthy. DC planning more than 35 minutes.
== END 2016-06-21 16:40 | disposition home or self-care (01) | DRG 871 ==
LOC: EC 13:36 → 5MS5E 15:15
PROVIDERS: ADMIT Hospitalist; ATTEND Hospitalist
PROC: 0FJD8ZZ Inspection of Pancreatic Duct, Via Natural or Artificial Opening Endoscopic (ICD-10-PCS; principal; 2016-06-20 08:05)
DX: A41.51 Sepsis due to Escherichia coli [E. coli] (principal); N17.0 Acute kidney failure with tubular necrosis; I95.9 Hypotension, unspecified; K83.0 Cholangitis; I13.0 Hypertensive heart and chronic kidney disease with heart failure and stage 1 through stage 4 chronic kidney disease, or unspecified chronic kidney disease; K85.10 Biliary acute pancreatitis without necrosis or infection; D69.59 Other secondary thrombocytopenia; I50.30 Unspecified diastolic (congestive) heart failure; K50.90 Crohn's disease, unspecified, without complications; K86.1 Other chronic pancreatitis; E88.09 Other disorders of plasma-protein metabolism, not elsewhere classified; N18.3 Chronic kidney disease, stage 3 (moderate); I45.10 Unspecified right bundle-branch block; Z95.1 Presence of aortocoronary bypass graft; E78.00 Pure hypercholesterolemia, unspecified; K59.00 Constipation, unspecified; K21.9 Gastro-esophageal reflux disease without esophagitis; I25.2 Old myocardial infarction; I25.10 Atherosclerotic heart disease of native coronary artery without angina pectoris; R65.20 Severe sepsis without septic shock; J44.9 Chronic obstructive pulmonary disease, unspecified; N21.0 Calculus in bladder; N20.0 Calculus of kidney; R74.0 Nonspecific elevation of levels of transaminase and lactic acid dehydrogenase [LDH]; K57.30 Diverticulosis of large intestine without perforation or abscess without bleeding; M16.0 Bilateral primary osteoarthritis of hip; R26.9 Unspecified abnormalities of gait and mobility; H91.90 Unspecified hearing loss, unspecified ear; F41.9 Anxiety disorder, unspecified; F32.9 Major depressive disorder, single episode, unspecified; Z87.11 Personal history of peptic ulcer disease; Z79.899 Other long term (current) drug therapy; Z80.3 Family history of malignant neoplasm of breast; Z87.891 Personal history of nicotine dependence; Z82.5 Family history of asthma and other chronic lower respiratory diseases; Z84.1 Family history of disorders of kidney and ureter; Z90.49 Acquired absence of other specified parts of digestive tract; Z87.442 Personal history of urinary calculi; Z85.820 Personal history of malignant melanoma of skin; Z85.46 Personal history of malignant neoplasm of prostate; Z88.0 Allergy status to penicillin; Z88.2 Allergy status to sulfonamides; Z87.19 Personal history of other diseases of the digestive system; Z87.01 Personal history of pneumonia (recurrent); Z86.19 Personal history of other infectious and parasitic diseases; Z87.09 Personal history of other diseases of the respiratory system; Z90.2 Acquired absence of lung [part of]; Z79.891 Long term (current) use of opiate analgesic; Z79.51 Long term (current) use of inhaled steroids; Z98.42 Cataract extraction status, left eye; Z98.41 Cataract extraction status, right eye; Z90.79 Acquired absence of other genital organ(s); Z79.82 Long term (current) use of aspirin
CPT/HCPCS: 36415; 43262; 74177; 74330; 80048; 80053; 80061; 81001; 82150; 83605; 83690; 83735; 83880; 84100; 84484; 85025; 85027; 87040; 87077; 87086; 87186; 87502; 93005; 94640; 94760; 96361; 96374; 99285

== ENCOUNTER 2016-06-24 17:06 | Emergency (ER) | payer MEDICARE, OTHER ==
[2016-06-24 17:34] VITALS: RESP 18
[2016-06-24 18:26] LABS: Basophils % (A) 0 %; CH 33.4; CHCM 34.8; Eosinophils # (A) 0.3 k/uL (0-0.7); Eosinophils % (A) 4 %; HDW 2.52; Luc # (Auto) 0.17; Luc % (Auto) 2; Lymphocytes % (A) 14 %; MCH 32.9 pg (25.0-35.0); MCHC 34.1 g/dL (31.0-37.0); MCV 96.4 fL (80.0-100.0); Mean Platelet Volume 7.6; Monocytes # (A) 0.4 k/uL (0-1.0); Monocytes % (A) 6 %; Neutrophils # (A) 5.3 k/uL (1.3-7.7); Neutrophils % (A) 74 %; RBC 3.94 m/uL (4.30-5.90); RDW 12.9 % (11.5-15.5); WBC 7.1 k/uL (3.8-10.6); WBC (Perox) 6.62
[2016-06-24 18:34] LABS: Calcium 9.5 mg/dL (8.4-10.2); Potassium 3.9 mmol/L (3.5-5.1); Total Bilirubin 1.1 mg/dL (0.2-1.3)
[2016-06-24 18:38] LABS: Appearance,Urine Clear (Clear); Bilirubin,Urine Negative (Negative); Glucose,Urine (UA) Negative (Negative); Ketones,Urine Negative (Negative); Leukocyte Esterase,Urine Negative (Negative); Nitrite,Urine Negative (Negative); PH, Urine 6.5 (5.0-8.0); Protein,Urine Negative (Negative); Specific Gravity,Urine 1.006 (1.001-1.035); UA Billing (MACRO vs. MICRO) CHEM; Urobilinogen,Urine <2.0 mg/dL (<2.0)
[2016-06-24] MEDS ORDERED: RX INFO: IV CONTRAST WAS GIVEN 1 EACH MISC MISCELLANE PRN (18:50)
--- NOTE | 2016-06-24 19:06 | ED ---
General Adult HPI - General Chief complaint: Abdominal Pain Stated complaint: ANKLES SWELLING Time Seen by Provider: 06/24/16 17:38 Source: patient, family, RN notes reviewed, old records reviewed Mode of arrival: wheelchair Limitations: no limitations - History of Present Illness Initial comments: 89-year-old male presenting for abdominal pain. States he's been constipated for over a week. He has been trying stool softeners without relief. Patient also states he's had bilateral leg swelling over the past few days. He was recently discharged from the hospital after being treated for ascending cholangitis. He denies any fevers or chills. He has been taking his antibiotics. He denies any chest pain or shortness of breath. He denies any nausea or vomiting. He denies any blood in his stool. - Related Data Home Medications Medication Instructions Recorded Confirmed Budesonide/Formoterol Fumarate 2 puff INHALATION RT-BID 05/29/14 06/24/16 [Symbicort 80-4.5 Mcg Inhaler] Cyanocobalamin [Vitamin B-12 1,000 mcg SQ QMONTH 05/29/14 06/24/16 Injection] Furosemide [Lasix] 20 mg PO MOWEFR 05/29/14 06/24/16 Mesalamine [Delzicol] 800 mg PO BID@0800,2100 05/29/14 06/24/16 Pravastatin Sodium [Pravachol] 40 mg PO HS@2100 05/29/14 06/24/16 Magnesium Oxide [Mag-Ox] 400 mg PO DAILY@0800 10/15/14 06/24/16 Fluticasone Nasal [place] [Flonase 1 spray EA NOSTRIL DAILY 12/05/14 06/24/16 Nasal [place]] Loratadine [Claritin] 10 mg PO DAILY 12/05/14 06/24/16 Cholecalciferol [Vitamin D3] 1,000 unit PO DAILY 03/22/16 06/24/16 Docusate [Colace] 100 mg PO BID PRN 03/22/16 06/24/16 HYDROcodone/APAP 5-325MG [[place] 1 tab PO Q4HR PRN 03/22/16 06/24/16 5-325] Omeprazole [PriLOSEC] 20 mg PO BID@0800,1700 03/22/16 06/24/16 Atenolol [Tenormin] 12.5 mg PO DAILY@0800 06/24/16 06/24/16 Previous Rx's Medication Instructions Recorded ALPRAZolam [Xanax] 0.5 mg PO BID PRN #20 tab 10/23/14 Ipratropium-Albuterol Nebulize 3 ml INHALATION RT-QID #1 ampul.neb 10/23/14 [Duoneb 0.5 mg-3 mg/3 ml Soln] Aspirin 81 mg PO DAILY chew 06/21/16 Levofloxacin [Levaquin] 750 mg PO DAILY #7 tab 06/21/16 Allergies Allergy/AdvReac Type Severity Reaction Status Date / Time Penicillins Allergy Unknown Rash/Hives Verified 06/24/16 18:01 Sulfa (Sulfonamide Allergy Unknown Rash/Hives Verified 06/24/16 18:01 Antibiotics) Review of Systems ROS Statement: Those systems with pertinent positive or pertinent negative responses have been documented in the HPI. ROS Other: All systems not noted in ROS Statement are negative. Past Medical History Past Medical History: Blood Disorder, Cancer, Heart Failure, GI Bleed, Renal Disease Additional Past Medical History / Comment(s): crohns, diverticulosis, anemia, prostate cancer, skin cancers -melanoma removed from chest, heart failure- dystolic dysfunction with EF 50% in May 2013, pneumonia and bronchitis, chronic respiratory failure, numbness bilateral feet, arthiritis bilateral hips and knees, DJD, gait dysfunction, CKD, nephrolitiasis, urinary calculus, back pain. Last Myocardial Infarction Date:: 1989 History of Any Multi-Drug Resistant Organisms: None Reported Past Surgical History: Bowel Resection, Coronary Bypass/CABG, Heart Catheterization Additional Past Surgical History / Comment(s): ileocolectomy, several endoscopic procedures upper and lower, lumbar back surgery, multiple lithotripsies, hemmorhoidectomy, R lung partial lobectomy, bilateral rotator cuff repair, R foot achilles tendon repair, L heel spur and benign tumor removal , cystoscopy, TURP, bilateral cataract removal, L eye macular pucker surgery, skin cancer removals, BMA with diagnosing Chrons, laryngoscopy, SNIFF test x 2, peridontal surgery. Past Anesthesia/Blood Transfusion Reactions: No Reported Reaction Additional Past Anesthesia/Blood Transfusion Reaction / Comment(s): Pt has recieved 11 units of blood without reaction. Past Psychological History: Anxiety, Depression Additional Psychological History / Comment(s): Pt lives alone. He is normally independent. He uses a cane to ambulate. He drives. He has no home care agency. He has 2 nieces who assist him. Smoking Status: Former smoker Past Alcohol Use History: Occasional Additional Past Alcohol Use History / Comment(s): Pt smoked for about 6 months while in the service in [employer]. Pt will have an occasional beer or tavo. Past Drug Use History: None Reported - Past Family History Father Family Medical History: COPD Additional Family Medical History / Comment(s): Father at age 81yrs. Mother Family Medical History: Cancer, Renal Disease Additional Family Medical History / Comment(s): Mother had alot of stomach problems, breast cancer and kidney disease. General Exam - General Exam Comments Initial Comments: General: Awake and Alert. No acute distress. Does not appear acutely ill. Eyes: [place], EOM intact. No nystagmus. No scleral icterus. HENT: Atraumatic, normocephalic. Mucous membranes moist. Trachea midline. Neck: The neck is supple, there is no tenderness or JVD. Cardiovascular: Regular rate and rhythm. No murmur, rub, or gallop is appreciated. Distal pulses intact. 2+ pitting edema bilateral lower extremity. Respiratory: Lungs are clear to auscultation bilaterally. No wheezes, rales, rhonchi. No respiratory distress. Gastrointestinal: Soft, Nontender. No rebound or guarding. Non-distended. No masses or organomegaly noted. No CVA tenderness. Musculoskeletal: No tenderness. Normal ROM. No gross deformity. No strength deficits. Neurological: A&Ox3. CN II-XII grossly intact, There are no obvious motor or sensory deficits. Coordination appears grossly intact. Speech is normal. Skin: Skin is warm and dry and no rashes or lesions are noted. Psychiatric: Cooperative, appropriate mood & affect, normal judgment. Limitations: no limitations Course Vital Signs 06/24/16 17:30 Temperature 98.4 F Pulse Rate 63 Respiratory 18 Rate Blood Pressure 154/69 O2 Sat by Pulse 94 L Oximetry EKG Findings - EKG Comments: EKG Findings:: EKG 18:02. Sinus rhythm. Rate 59. Right bundle branch block. No STEMI. Abnormal EKG. Similar to prior EKG 06/17/2016. Medical Decision Making - Medical Decision Making 89-year-old male presenting for constipation. No significant abdominal tenderness on exam or evidence of acute peritonitis. Main complaint is constipation for the past week. He has been trying stool softeners without relief. Given his recent significant intra-abdominal infection plan for lab workup in addition to CT abdomen and pelvis. Lab work was stable CBC. Stable BMP. LFTs within normal limits. Lipase negative. CT abdomen and pelvis with evidence of significant stool in the rectum and colon. Patient also with lower extremity edema. Does have history of CHF, given recent admission and fluid administration this is likely fluid retention secondary to this. Patient does not appear clinically to be in acute CHF exacerbation at this time. He is taking Lasix but only every other day. Discussed taking this medication daily and following up with his primary doctor for further evaluation. He states he has follow up with his PCP Monday. Patient reevaluated updated on results and imaging. Discussed evidence of constipation. Enema was performed with small BM after. Patient was given bottle of mag citrate and instructions for continued management at home. Discussed continued use of stool softeners at home. Discussed continue follow- up with PCP. Patient otherwise appears stable for discharge at this time. Discussed concerning signs symptoms related return to the ED. Patient and family are agreeable with plan to discharge home. - Lab Data Result diagrams: 06/24/16 18:10 06/24/16 18:10 Lab Results 06/24/16 06/24/16 06/24/16 Range/Units 18:10 18:10 18:10 WBC 7.1 (3.8-10.6) k/uL RBC 3.94 L (4.30-5.90) m/uL Hgb 13.0 (13.0-17.5) gm/dL Hct 38.0 L (39.0-53.0) % MCV 96.4 (80.0-100.0) fL MCH 32.9 (25.0-35.0) pg MCHC 34.1 (31.0-37.0) g/dL RDW 12.9 (11.5-15.5) % Plt Count 162 (150-450) k/uL Neutrophils % 74 % Lymphocytes % 14 % Monocytes % 6 % Eosinophils % 4 % Basophils % 0 % Neutrophils # 5.3 (1.3-7.7) k/uL Lymphocytes # 1.0 (1.0-4.8) k/uL Monocytes # 0.4 (0-1.0) k/uL Eosinophils # 0.3 (0-0.7) k/uL Basophils # 0.0 (0-0.2) k/uL Sodium 139 (137-145) mmol/L Potassium 3.9 (3.5-5.1) mmol/L Chloride 100 (98-107) mmol/L Carbon Dioxide 31 H (22-30) mmol/L Anion Gap 8 mmol/L BUN 19 (9-20) mg/dL Creatinine 1.39 H (0.66-1.25) mg/dL Est GFR (MDRD) Af Amer 58 (>60 ml/min/1.73 sqM) Est GFR (MDRD) Non-Af 48 (>60 ml/min/1.73 sqM) Glucose 93 (74-99) mg/dL Plasma Lactic Acid Humberto 1.0 (0.7-2.0) mmol/L Calcium 9.5 (8.4-10.2) mg/dL Total Bilirubin 1.1 (0.2-1.3) mg/dL AST 33 (17-59) U/L ALT 55 (21-72) U/L Alkaline Phosphatase 105 (38-126) U/L Total Protein 6.0 L (6.3-8.2) g/dL Albumin 3.6 (3.5-5.0) g/dL Lipase 72 (23-300) U/L Urine Color Urine Appearance (Clear) Urine pH (5.0-8.0) Ur Specific [place] (1.001-1.035) Urine Protein (Negative) Urine Glucose (UA) (Negative) Urine Ketones (Negative) Urine Blood (Negative) Urine Nitrite (Negative) Urine Bilirubin (Negative) Urine Urobilinogen (<2.0) mg/dL Ur Leukocyte Esterase (Negative) 06/24/16 Range/Units 18:20 WBC (3.8-10.6) k/uL RBC (4.30-5.90) m/uL Hgb (13.0-17.5) gm/dL Hct (39.0-53.0) % MCV (80.0-100.0) fL MCH (25.0-35.0) pg MCHC (31.0-37.0) g/dL RDW (11.5-15.5) % Plt Count (150-450) k/uL Neutrophils % % Lymphocytes % % Monocytes % % Eosinophils % % Basophils % % Neutrophils # (1.3-7.7) k/uL Lymphocytes # (1.0-4.8) k/uL Monocytes # (0-1.0) k/uL Eosinophils # (0-0.7) k/uL Basophils # (0-0.2) k/uL Sodium (137-145) mmol/L Potassium (3.5-5.1) mmol/L Chloride (98-107) mmol/L Carbon Dioxide (22-30) mmol/L Anion Gap mmol/L BUN (9-20) mg/dL Creatinine (0.66-1.25) mg/dL Est GFR (MDRD) Af Amer (>60 ml/min/1.73 sqM) Est GFR (MDRD) Non-Af (>60 ml/min/1.73 sqM) Glucose (74-99) mg/dL Plasma Lactic Acid Humberto (0.7-2.0) mmol/L Calcium (8.4-10.2) mg/dL Total Bilirubin (0.2-1.3) mg/dL AST (17-59) U/L ALT (21-72) U/L Alkaline Phosphatase (38-126) U/L Total Protein (6.3-8.2) g/dL Albumin (3.5-5.0) g/dL Lipase (23-300) U/L Urine Color Light Yellow Urine Appearance Clear (Clear) Urine pH 6.5 (5.0-8.0) Ur Specific [place] 1.006 (1.001-1.035) Urine Protein Negative (Negative) Urine Glucose (UA) Negative (Negative) Urine Ketones Negative (Negative) Urine Blood Negative (Negative) Urine Nitrite Negative (Negative) Urine Bilirubin Negative (Negative) Urine Urobilinogen <2.0 (<2.0) mg/dL Ur Leukocyte Esterase Negative (Negative) - EKG Data -: EKG Interpreted by In EKG shows normal: sinus rhythm Rate: normal When compared to previous EKG there are: no significant change - Radiology Data Radiology results: report reviewed, image reviewed Disposition Clinical Impression: Constipation, Lower extremity edema, Nonspecific abdominal pain Disposition: HOME SELF-CARE Condition: Stable Instructions: Abdominal Pain (ED), Constipation (ED), Leg Edema (ED) Additional Instructions: Please take the Mag Citrate when you get home. Drink half the bottle, if no bowel movement in 1 hours, finish the rest of the bottle. Please start taking your Lasix every day for your leg swelling. Please follow up with your regular doctor to continue to evaluate your leg swelling. Referrals: Khoa Alford DO [Primary Care Provider] - 1-2 days Time of Disposition: 22:43
--- NOTE | 2016-06-24 19:59 | CT ---
EXAMINATION TYPE: CT abdomen pelvis wo con DATE OF EXAM: 06/24/2016 7:43 PM COMPARISON: 05/29/2014 HISTORY: Bowel changes with severe Left sided pain CT DLP: 926 mGycm Automated exposure control for dose reduction was used. TECHNIQUE: Helical acquisition of images was performed from the lung bases through the pelvis. FINDINGS: There are clips from cholecystectomy. There are a few air bubbles in the biliary tree. Heart is enlar ged. There is a small left pleural effusion.. Spleen shows small calcified granulomata. There is no p ancreatic mass. There is no adrenal mass. There are nonobstructing multiple bilateral renal calculi. There is no hydr onephrosis. There is no retroperitoneal adenopathy. There is a ventral hernia that contains omentum a nd bowel. I see no mechanical obstruction. There is retained fecal material in the rectum. There is c oronary artery calcification. There is a 1 cm calcification in the dependent urinary bladder. There a re clips in the right mid abdomen from bowel surgery. I see no focal bone destruction. IMPRESSION: LARGE BLADDER CALCULUS. NONOBSTRUCTING RENAL CALCULI. LARGE VENTRAL HERNIA IS NEW COMPARED TO OLD CT SCAN. NO EVIDENCE OF A BOWEL OBSTRUCTION. CONSTIPATION. MODERATE CARDIOMEGALY. Small left pleural eff usion. There are few air bubbles in the biliary tree that are new compared to old exam and consistent with surgery.
[2016-06-24] MEDS ORDERED: MAGNESIUM CITRATE 296 ML BOTTLE PO ONE (21:26)
[2016-06-25 01:31] VITALS: BP 161/83; PULSE 88; TEMP 98.9
== END 2016-06-24 23:30 | disposition home or self-care (01) ==
LOC: EC 17:06
DX: K59.00 Constipation, unspecified (principal); R60.0 Localized edema; I50.9 Heart failure, unspecified; Z85.46 Personal history of malignant neoplasm of prostate; N18.9 Chronic kidney disease, unspecified; J96.10 Chronic respiratory failure, unspecified whether with hypoxia or hypercapnia; Z85.828 Personal history of other malignant neoplasm of skin; F32.9 Major depressive disorder, single episode, unspecified; F41.9 Anxiety disorder, unspecified; Z87.891 Personal history of nicotine dependence; D64.9 Anemia, unspecified; Z79.51 Long term (current) use of inhaled steroids; Z79.899 Other long term (current) drug therapy; Z88.0 Allergy status to penicillin; Z88.2 Allergy status to sulfonamides; Z98.890 Other specified postprocedural states
CPT/HCPCS: 36415; 74176; 80053; 81003; 83605; 83690; 85025; 93005; 99285

== ENCOUNTER 2016-06-25 18:45 | Inpatient (IN) | payer MEDICARE, OTHER ==
[2016-06-25] MEDS ORDERED: SODIUM CHLORIDE 0.9% 1,000 ML IV ONE (19:04)
[2016-06-25 19:26] LABS: Basophils % (A) 0 %; CH 33.1; CHCM 33.5; Eosinophils % (A) 0 %; HCT 40.3 % (39.0-53.0); HDW 2.34; HGB 13.3 gm/dL (13.0-17.5); Luc % (Auto) 1; Lymphocytes # (A) 0.6 k/uL (1.0-4.8); Lymphocytes % (A) 7 %; MCH 32.7 pg (25.0-35.0); MCHC 32.9 g/dL (31.0-37.0); MCV 99.4 fL (80.0-100.0); Mean Platelet Volume 7.3; Monocytes # (A) 0.4 k/uL (0-1.0); Monocytes % (A) 4 %; Neutrophils # (A) 8.6 k/uL (1.3-7.7); Neutrophils % (A) 88 %; RBC 4.06 m/uL (4.30-5.90); RDW 13.1 % (11.5-15.5); WBC 9.8 k/uL (3.8-10.6); WBC (Perox) 9.82
[2016-06-25] MEDS ORDERED: MORPHINE SULFATE 4 MG/ML SYRINGE IVP STA (19:45)
[2016-06-25 19:47] LABS: Calcium 9.1 mg/dL (8.4-10.2); Potassium 3.9 mmol/L (3.5-5.1); Total Bilirubin 1.5 mg/dL (0.2-1.3); Total Protein 6.1 g/dL (6.3-8.2)
[2016-06-25] MEDS ORDERED: MORPHINE SULFATE 4 MG/ML SYRINGE ONE (21:00)
--- NOTE | 2016-06-25 23:38 | ED ---
Medical Decision Making - Medical Decision Making Please see paper chart for HPI, review of systems, physical exam, and initial plan. 89-year-old male with past medical history of Cancer, heart failure, GI bleed, renal disease, Crohn's disease, diverticulosis, prostate cancer, nephrolithiasis, ureterolithiasis, ileocolectomy, multiple endoscopic procedures , lumbar back surgery, multiple lithotripsies, hemorrhoidectomy, right lung lobectomy, TURP presenting for evaluation of abdominal pain with constipation, nausea, vomiting, and abdominal distention. He was seen a week ago and diagnosed with pancreatitis and admitted. He was discharged shortly after but continued to have constipation. He presented to this ED again last night and had marketed constipation and abdominal pain. CT abdomen and pelvis showed no obstruction and he was discharged this morning however he continued to have pain and distention leading to his visit today. On physical examination he has a distended abdomen that is soft but tender to palpation without peritoneal signs of guarding, rigidity, rebound. Lungs are clear to auscultation bilaterally and cardiac exam is benign. He does have lower extremity edema. Rectal exam for disimpaction was unsuccessful as there was no stool felt in the rectal vault. We'll obtain labs, acute abdominal series, and provide pain control. Labs significant for acute kidney injury but otherwise no significant abnormalities. Acute abdominal series was interpreted by this ED physician and multiple air-fluid levels are noted throughout the abdomen. Although he had a CT abdomen yesterday given his distention, abdominal pain, nausea, and the results of the acute abdominal series will obtain a CT abdomen and pelvis again. Patient reevaluated and had improvement in pain but still unable to pass stool. We will provide an enema and reevaluate. Pt was discussed with ISAÍAS Burgess who accepted the admission on behalf of Dr. Santiago. She agreed with plan to obtain another CT abdomen and request consult with Dr. Oviedo (GI). Dr. Oviedo was updated on the status of the patient and agreed with this plan of care. Admission order was filled out and signed on paper and submitted. - Lab Data Result diagrams: 06/25/16 19:00 06/25/16 19:00 Lab Results 06/25/16 06/25/16 06/25/16 Range/Units 19:00 19:00 19:00 WBC 9.8 (3.8-10.6) k/uL RBC 4.06 L (4.30-5.90) m/uL Hgb 13.3 (13.0-17.5) gm/dL Hct 40.3 (39.0-53.0) % MCV 99.4 (80.0-100.0) fL MCH 32.7 (25.0-35.0) pg MCHC 32.9 (31.0-37.0) g/dL RDW 13.1 (11.5-15.5) % Plt Count 191 (150-450) k/uL Neutrophils % 88 % Lymphocytes % 7 % Monocytes % 4 % Eosinophils % 0 % Basophils % 0 % Neutrophils # 8.6 H (1.3-7.7) k/uL Lymphocytes # 0.6 L (1.0-4.8) k/uL Monocytes # 0.4 (0-1.0) k/uL Eosinophils # 0.0 (0-0.7) k/uL Basophils # 0.0 (0-0.2) k/uL Sodium 138 (137-145) mmol/L Potassium 3.9 (3.5-5.1) mmol/L Chloride 96 L (98-107) mmol/L Carbon Dioxide 31 H (22-30) mmol/L Anion Gap 11 mmol/L BUN 22 H (9-20) mg/dL Creatinine 1.36 H (0.66-1.25) mg/dL Est GFR (MDRD) Af Amer 60 (>60 ml/min/1.73 sqM) Est GFR (MDRD) Non-Af 49 (>60 ml/min/1.73 sqM) Glucose 112 H (74-99) mg/dL Plasma Lactic Acid Humber[place] (0.7-2.0) mmol/L Calcium 9.1 (8.4-10.2) mg/dL Total Bilirubin 1.5 H (0.2-1.3) mg/dL AST 33 (17-59) U/L ALT 48 (21-72) U/L Alkaline Phosphatase 105 (38-126) U/L Troponin I (0.000-0.034) ng/mL NT-Pro-B Natriuret Pep 1800 pg/mL Total Protein 6.1 L (6.3-8.2) g/dL Albumin 3.5 (3.5-5.0) g/dL Lipase 67 (23-300) U/L 06/25/16 06/25/16 Range/Units 19:00 19:00 WBC (3.8-10.6) k/uL RBC (4.30-5.90) m/uL Hgb (13.0-17.5) gm/dL Hct (39.0-53.0) % MCV (80.0-100.0) fL MCH (25.0-35.0) pg MCHC (31.0-37.0) g/dL RDW (11.5-15.5) % Plt Count (150-450) k/uL Neutrophils % % Lymphocytes % % Monocytes % % Eosinophils % % Basophils % % Neutrophils # (1.3-7.7) k/uL Lymphocytes # (1.0-4.8) k/uL Monocytes # (0-1.0) k/uL Eosinophils # (0-0.7) k/uL Basophils # (0-0.2) k/uL Sodium (137-145) mmol/L Potassium (3.5-5.1) mmol/L Chloride (98-107) mmol/L Carbon Dioxide (22-30) mmol/L Anion Gap mmol/L BUN (9-20) mg/dL Creatinine (0.66-1.25) mg/dL Est GFR (MDRD) Af Amer (>60 ml/min/1.73 sqM) Est GFR (MDRD) Non-Af (>60 ml/min/1.73 sqM) Glucose (74-99) mg/dL Plasma Lactic Acid Humberto 0.7 (0.7-2.0) mmol/L Calcium (8.4-10.2) mg/dL Total Bilirubin (0.2-1.3) mg/dL AST (17-59) U/L ALT (21-72) U/L Alkaline Phosphatase (38-126) U/L Troponin I 0.031 (0.000-0.034) ng/mL NT-Pro-B Natriuret Pep pg/mL Total Protein (6.3-8.2) g/dL Albumin (3.5-5.0) g/dL Lipase (23-300) U/L 06/26/16 02:03 Normal sinus rhythm with a right bundle branch block and a ventricular rate of 75, MARCO A 164, QRS 138, QT/QTC 424/473. Disposition Clinical Impression: Small bowel obstruction, Abdominal pain, Nausea and vomiting, CYRIL (acute kidney injury) Disposition: ADMITTED IP TO THIS HOSP Referrals: Khoa Alford DO [Primary Care Provider] - 1-2 days Decision to Admit Reason: Admit from EC Decision Date: 06/25/16 Decision Time: 23:37
[2016-06-25] MEDS ORDERED: IPRATROPIUM-ALBUTEROL 3 ML NEB INHALATION STA (23:52)
[2016-06-26 01:56] VITALS: BMI 28.5
[2016-06-26] MEDS ORDERED: MORPHINE SULFATE 4 MG/ML SYRINGE IVP PRN (02:04)
[2016-06-26] MEDS ORDERED: ONDANSETRON 4 MG/2 ML VIAL IVP PRN (02:05)
[2016-06-26] MEDS: SODIUM CHLORIDE 0.9% 1,000 ML IV SCH ×2 (03:39→20:27)
--- NOTE | 2016-06-26 07:14 | XR ---
INDICATION: Abdominal pain COMPARISON: CT abdomen and pelvis, 06/24/16 FINDINGS: Upright frontal view of the chest and upright and supine frontal views of the abdomen (4 images total) are reviewed. There is stable elevation of the right hemidiaphragm with right basilar subsegmental atelectasis. There is no pleural effusion or pneumothorax. There is cardiomegaly status post midline sternotomy. Upright view of the abdomen demonstrates distended large and small bowel loops with multiple fluid levels. No evidence of free air. Proximal transverse colon is air-filled and measures 8.2 cm. Loops of small bowel measure up to 3.5 cm. Radiopaque bowel anastomotic suture material is visualized in the right hemiabdomen. There has been prior cholecystectomy. No evidence of acute osseous abnormality. IMPRESSION: 1. Distended small and large bowel with multiple fluid levels in a pattern suggesting ileus. 2. Evidence of prior bowel surgery with anastomosis in the right abdomen. 3. Elevated right hemidiaphragm with right basilar atelectasis, stable.
[2016-06-26 09:20] LABS: Basophils % (A) 1 %; CH 32.4; CHCM 31.9; Eosinophils # (A) 0.1 k/uL (0-0.7); Eosinophils % (A) 2 %; HCT 37.5 % (39.0-53.0); HGB 11.9 gm/dL (13.0-17.5); Luc # (Auto) 0.09; Luc % (Auto) 2; Lymphocytes # (A) 0.7 k/uL (1.0-4.8); Lymphocytes % (A) 11 %; MCH 32.4 pg (25.0-35.0); MCHC 31.8 g/dL (31.0-37.0); MCV 101.8 fL (80.0-100.0); Macrocytosis Slight; Mean Platelet Volume 7.8; Monocytes # (A) 0.3 k/uL (0-1.0); Monocytes % (A) 5 %; Neutrophils # (A) 4.8 k/uL (1.3-7.7); Neutrophils % (A) 80 %; RBC 3.68 m/uL (4.30-5.90); WBC (Perox) 6.43
[2016-06-26 09:37] LABS: Anion Gap 4 mmol/L; Blood Urea Nitrogen 23 mg/dL (9-20); Calcium 8.3 mg/dL (8.4-10.2); Carbon Dioxide 33 mmol/L (22-30); Chloride 102 mmol/L (98-107); Glucose 95 mg/dL (74-99); Non-African American GFR(MDRD) 51 (>60 ml/min/1.73 sqM); Potassium 4.3 mmol/L (3.5-5.1); Sodium 139 mmol/L (137-145)
[2016-06-26] MEDS ORDERED: ALPRAZolam 0.5 MG TAB PO PRN (13:02)
[2016-06-26] MEDS ORDERED: HYDROcodone/APAP 5-325MG 1 EACH TAB PO PRN (13:02)
[2016-06-26] MEDS: ENOXAPARIN 40 MG/0.4 ML SYRINGE SQ SCH (15:28)
[2016-06-26] MEDS: ATENOLOL 12.5 MG TAB PO SCH (15:28)
[2016-06-26] MEDS: PANTOPRAZOLE 40 MG TABLET PO SCH (15:29)
[2016-06-26] MEDS: ASPIRIN 81 MG CHEW PO SCH (15:29)
[2016-06-26] MEDS: IPRATROPIUM-ALBUTEROL 3 ML NEB INHALATION SCH ×2 (16:59→20:58)
[2016-06-26] MEDS: BALSALAZIDE DISODIUM 750 MG CAPSULE PO SCH (20:26)
[2016-06-26] MEDS: SYMBICORT 80-4.5 MCG INHALER INHALATION SCH (20:58)
[2016-06-26] MEDS ORDERED: PRAVASTATIN SODIUM 40 MG TAB PO SCH (21:00)
[2016-06-27 00:33] VITALS: RESP 16
[2016-06-27] MEDS: SODIUM CHLORIDE 0.9% 1,000 ML IV SCH ×3 (05:02→12:04)
[2016-06-27] MEDS: IPRATROPIUM-ALBUTEROL 3 ML NEB INHALATION SCH ×2 (07:35→11:59)
[2016-06-27] MEDS: SYMBICORT 80-4.5 MCG INHALER INHALATION SCH (07:37)
[2016-06-27] MEDS ORDERED: MAGNESIUM OXIDE 400 MG TAB PO SCH (08:00)
--- NOTE | 2016-06-27 08:16 | HP ---
DATE OF ADMISSION: 06/25/2016 PRESENTING COMPLAINT: Abdominal pain. HISTORY OF PRESENTING COMPLAINT: This is a very pleasant 89-year-old patient of Dr. Alford. Patient was in the hospital recently and at that time was diagnosed to have ascending cholangitis causing sepsis. The patient also had acute renal failure. Patient's other chronic stable medical conditions include hypertension, COPD, chronic kidney disease. Patient also had pancreatitis. The patient on that admission did have ERCP and did have a biliary sphincterotomy and balloon extraction. Patient came in today for not having had a bowel movement for a few days, increasing abdominal discomfort, pain from the same. Patient x-ray did show ( ) fluid level, but this morning, the patient had a very large bowel movement and followed by liquid stool, feels much better after the same. REVIEW OF SYSTEMS: CONSTITUTIONAL: Tired. HEENT: Slightly decreased hearing. RESPIRATORY: None. CARDIOVASCULAR: None. GASTROINTESTINAL: As above. GENITOURINARY: None. MUSCULOSKELETAL: Some pain in the joints. DERMATOLOGIC: None. HEMATOLOGIC: None. LYMPHATICS: None. PSYCHIATRY: None. NEUROLOGICAL: None. PAST MEDICAL HISTORY: Heart failure, GI bleed, diverticulosis, prostate cancer, skin cancer, melanoma removed from the chest, CHF with diastolic dysfunction, EF 50%, numbness, bilateral feet, arthritis, bilateral of hips and knees, DJD, kidney stones, urinary calculus, coronary artery disease. On last admission had ascending cholangitis and biliary pancreatitis also chronic kidney disease, COPD, hypertension. PAST SURGICAL HISTORY: Bowel resection, coronary artery bypass, cardiac catheterization, ileocolectomy, several endoscopic procedures upper and lower, lumbar back surgery, multiple lithotripsies, hemorrhoidectomy, right partial lung lobectomy, bilateral rotator cuff repair, right Achilles tendon repair, left heel spur, TURP, bilateral cataract removal, left eye macular pucker surgery, skin cancer. SOCIAL HISTORY: Lives alone, uses a cane to get about, 2 nieces help him out. Patient does not smoke. Occasional beer or tavo. FAMILY HISTORY: COPD, father age of 81. HOME MEDICATIONS: 1. Pravachol 40 mg q.h.s. 2. Prilosec 20 mg p.o. b.i.d. 3. Mesalamine 800 mg p.o. b.i.d. 4. Magnesium oxide 400 mg p.o. ( ). 5. Claritin 10 mg p.o. daily. 6. Levaquin 750 mg p.o. daily. 7. DuoNeb q.i.d. 8. [place] 5 one tablet q.4 p.r.n. 9. Lasix 20 mg p.o. daily. 10. Colace 100 mg b.i.d. 11. Vitamin B12, 1000 mcg subcu monthly. 12. Vitamin D3, 1000 units p.o. daily. 13. Symbicort 80/4.5 two puffs b.i.d. 14. Tenormin 12.5 p.o. daily. 15. Aspirin 81 mg p.o. daily. 16. Xanax 0.5 p.o. b.i.d. p.r.n. Allergies to PENICILLIN, SULFA. ON EXAMINATION: VITAL SIGNS ON PRESENTATION: Temperature 98.6, pulse 74, respirations 16, blood pressure 167/83, pulse ox 96% on room air. GENERAL APPEARANCE: Average build, lying in bed, tired appearing. EYES: Pupils equal. Conjunctival normal. HEENT: External appearance of nose and ears normal. Oral cavity normal. NECK: JVD not raised. Mass not palpable. RESPIRATORY: Effort normal. LUNGS: Slightly decreased breath sounds. CARDIOVASCULAR: First and second sounds normal. No edema. ABDOMEN: Soft, minimal tenderness. Liver and spleen not palpable. Bowel sounds present. LYMPHATIC: No lymph node palpable in neck or axillae. PSYCHIATRY: Alert and oriented x3. Mood and affect normal. NEUROLOGICAL: Pupils equal. Cranial nerves grossly intact. Power and sensation grossly intact. INVESTIGATIONS: White count 9.8, hemoglobin 11.9, platelets 191. Potassium 3.9. BUN 22, creatinine 1.36. Patient's BUN and creatinine was 60/1.57 upon discharge. Lipase 67. Acute abdominal series distended small and large bowel with multiple air-fluid levels and elevated right hemidiaphragm. ASSESSMENT: 1. Acute severe ileus/constipation, has not had a bowel movement for a few days causing abdominal pain, no bowel movement, present on admission. 2. Essential hypertension. 3. Chronic obstructive pulmonary disease in a nonsmoker. 4. 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 5. Diverticulosis. 6. Chronic congestive heart failure from diastolic dysfunction, ejection fraction 50%. 7. Peripheral neuropathy, idiopathic. 8. Primary osteoarthritis in multiple joints, including hips and knees. 9. Nephrolithiasis. 10. Coronary artery disease with prior history of coronary artery bypass. PLAN: Patient's home medications are resumed. Patient responded very well to laxative, had a very large bowel movement after which he actually feels much better. MiraLAX is added. GI was consulted earlier. Getting Lovenox for DVT prophylax. ( ) will be encouraged. Care was discussed with the patient in details.
[2016-06-27] MEDS: PANTOPRAZOLE 40 MG TABLET PO SCH (08:25)
[2016-06-27] MEDS: ENOXAPARIN 40 MG/0.4 ML SYRINGE SQ SCH (08:25)
[2016-06-27] MEDS: BALSALAZIDE DISODIUM 750 MG CAPSULE PO SCH (08:25)
[2016-06-27] MEDS: ATENOLOL 12.5 MG TAB PO SCH (08:25)
[2016-06-27] MEDS: ASPIRIN 81 MG CHEW PO SCH (08:26)
[2016-06-27] MEDS ORDERED: LORATADINE 10 MG TAB PO SCH (09:00)
[2016-06-27] MEDS ORDERED: FUROSEMIDE 20 MG TAB PO SCH (09:00)
[2016-06-27] MEDS ORDERED: POLYETHYLENE GLYCOL 3350 17 GM POWD.PACK PO SCH (09:00)
[2016-06-27 10:52] VITALS: BP 106/56; TEMP 97.5
[2016-06-27 12:18] VITALS: PULSE 86
--- NOTE | 2016-06-29 13:51 | DS ---
DATE OF ADMISSION: 06/25/2016 DATE OF DISCHARGE: 06/27/2016 FINAL DIAGNOSES: 1. Acute severe ileus along with constipation present at admission. 2. Essential hypertension. 3. Chronic obstructive pulmonary disease in a nonsmoker. 4. 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 5. Colonic diverticulosis. 6. Chronic congestive heart failure from diastolic dysfunction, ejection fraction 50%. 7. Peripheral neuropathy, idiopathic. 8. Primary osteoarthritis of multiple joints, including hips and knees. 9. Nephrolithiasis. 10. Coronary artery disease with prior history of coronary artery bypass. HOSPITAL COURSE: This is a patient who was recently in the hospital with ascending cholangitis causing sepsis, acute renal failure presented with severe constipation and abdominal discomfort found to have ileus. Patient subsequently had 2 large bowel movements, did much better at the time of discharge, tolerating a diet. On exam: ABDOMEN: Soft, nontender. LUNGS: Decreased breath sounds. Patient's BUN and creatinine are 23/1.3. CONSULTATION: Dr. Domenica Oviedo. DISCHARGE MEDICATIONS: 1. Symbicort 80/4.5 2 puffs b.i.d. 2. Vitamin B12 injection 1000 mcg monthly. 3. Lasix 20 mg p.o. daily. 4. ( ) 800 mg p.o. b.i.d. 5. Pravachol 40 mg p.o. q.h.s. 6. Magnesium oxide 400 mg p.o. daily. 7. Xanax 0.5 mg p.o. b.i.d. p.r.n. 8. Duoneb q.i.d. 9. Flonase one spray each nostril daily. 10. Claritin 10 mg p.o. daily. 11. Vitamin D3, 2000 units p.o. daily. 12. [place] 5 1 tablets q.4 p.r.n. 13. Prilosec 20 mg p.o. b.i.d. 14. Aspirin 81 mg p.o. daily. 15. Levaquin 750 mg p.o. daily course to be completed from last admission. 16. Tenormin 12.5 daily. 17. MiraLax 17 grams p.o. Monday, Monday and Monday. Follow up with Dr. Alford in one week, Dr. Domenica Oviedo on 06/28/2016.
== END 2016-06-27 15:56 | disposition home or self-care (01) | DRG 389 ==
LOC: EC 18:45 → 5MS5E 23:16
PROVIDERS: ADMIT Hospitalist; ATTEND Hospitalist
DX: K56.7 Ileus, unspecified (principal); I13.0 Hypertensive heart and chronic kidney disease with heart failure and stage 1 through stage 4 chronic kidney disease, or unspecified chronic kidney disease; N17.9 Acute kidney failure, unspecified; J44.9 Chronic obstructive pulmonary disease, unspecified; I50.32 Chronic diastolic (congestive) heart failure; K50.90 Crohn's disease, unspecified, without complications; N18.3 Chronic kidney disease, stage 3 (moderate); K57.30 Diverticulosis of large intestine without perforation or abscess without bleeding; G60.9 Hereditary and idiopathic neuropathy, unspecified; M16.0 Bilateral primary osteoarthritis of hip; M17.0 Bilateral primary osteoarthritis of knee; I25.10 Atherosclerotic heart disease of native coronary artery without angina pectoris; Z95.1 Presence of aortocoronary bypass graft; Z85.46 Personal history of malignant neoplasm of prostate; Z85.820 Personal history of malignant melanoma of skin; Z98.41 Cataract extraction status, right eye; Z98.42 Cataract extraction status, left eye; Z88.0 Allergy status to penicillin; Z88.2 Allergy status to sulfonamides; Z87.442 Personal history of urinary calculi; Z79.82 Long term (current) use of aspirin; Z79.899 Other long term (current) drug therapy
CPT/HCPCS: 36415; 74022; 74176; 80048; 80053; 81003; 83605; 83690; 83880; 84484; 85025; 93005; 94640; 96361; 96374; 99285